=== PATIENT | male | born 1975 | race Caucasian/White ===

== ENCOUNTER 2017-01-20 14:00 | Emergency (ER) | payer MEDICARE, MEDICAID ==
[~2017-01-20] VITALS: Ht 180.3 cm; Wt 61.2 kg
[2017-01-20 14:31] VITALS: BP 156/82
[2017-01-20] MEDS ORDERED: HYDROmorphone HCL 2 MG/ML VL IM ONE (14:45)
[2017-01-20] MEDS ORDERED: ONDANSETRON HCL 4 MG/2 ML VIAL IM ONE (14:45)
== END 2017-01-20 15:11 | disposition home or self-care (01) ==
LOC: ER 14:00
DX: G89.29 Other chronic pain (principal); M54.5 Low back pain; J44.9 Chronic obstructive pulmonary disease, unspecified; F17.210 Nicotine dependence, cigarettes, uncomplicated; Z98.1 Arthrodesis status; Z88.0 Allergy status to penicillin; Z88.6 Allergy status to analgesic agent
CPT/HCPCS: 96372; 99284; J1170; J2405

== ENCOUNTER 2019-02-04 15:23 | Emergency (ER) | payer MEDICARE, MEDICAID ==
[~2019-02-04] VITALS: Ht 180.3 cm; Wt 56.7 kg
[2019-02-04 18:56] VITALS: BP 110/85
[2019-02-04] MEDS ORDERED: DexAMETHasone SOD PHOS 10MG/1ML VIAL INJ IM ONE (19:15)
[2019-02-04] MEDS ORDERED: MORPHINE SULFATE 10 MG/ML INJ 1ML SDV IM ONE (19:15)
== END 2019-02-04 19:41 | disposition home or self-care (01) ==
LOC: ER 15:23
DX: M54.16 Radiculopathy, lumbar region (principal); G89.29 Other chronic pain; J44.9 Chronic obstructive pulmonary disease, unspecified; F17.210 Nicotine dependence, cigarettes, uncomplicated; F12.10 Cannabis abuse, uncomplicated; Z88.0 Allergy status to penicillin
CPT/HCPCS: 96372; 99283; J1100; J2270

== ENCOUNTER 2019-04-11 12:42 | Emergency (ER) | payer MEDICARE, MEDICAID ==
[~2019-04-11] VITALS: Ht 180.3 cm; Wt 61.2 kg
[2019-04-11 16:50] VITALS: BP 122/74
== END 2019-04-11 16:52 | disposition home or self-care (01) ==
LOC: ER 12:42
DX: F31.9 Bipolar disorder, unspecified (principal); J44.9 Chronic obstructive pulmonary disease, unspecified; I10 Essential (primary) hypertension; Z90.89 Acquired absence of other organs
CPT/HCPCS: 70450

== ENCOUNTER 2020-09-01 16:31 | Emergency (ER) | payer MEDICARE, MEDICAID ==
[~2020-09-01] VITALS: Ht 180.3 cm; Wt 54.4 kg
[2020-09-01] MEDS ORDERED: MORPHINE SULFATE 10 MG/ML INJ 1ML SDV IM ONE ×2 (19:45→20:00)
[2020-09-01 19:58] VITALS: BP 128/95
[2020-09-01] MEDS ORDERED: HYDROmorphone HCL 2 MG/ML VL IM ONE ×2 (20:30→21:45)
[2020-09-01] MEDS ORDERED: ONDANSETRON ODT 4 MG TAB PO ONE (21:15)
== END 2020-09-01 22:58 | disposition home or self-care (01) ==
LOC: ER 16:31
DX: M54.5 Low back pain (principal); F11.10 Opioid abuse, uncomplicated; J44.9 Chronic obstructive pulmonary disease, unspecified; I10 Essential (primary) hypertension; F17.210 Nicotine dependence, cigarettes, uncomplicated; Z90.89 Acquired absence of other organs; Z88.0 Allergy status to penicillin; Z88.8 Allergy status to other drugs, medicaments and biological substances
CPT/HCPCS: 72100; 96372; 99284; J1170; Q0162

== ENCOUNTER 2020-09-03 09:03 | Emergency (ER) | payer MEDICARE, MEDICAID ==
[~2020-09-03] VITALS: Ht 180.3 cm; Wt 59.0 kg
[2020-09-03 09:03] VITALS: BP 163/98
[2020-09-03] MEDS ORDERED: MORPHINE SULF INJ 2 MG/ML SYRINGE 1ML IM ONE (10:15)
[2020-09-03] MEDS ORDERED: ONDANSETRON HCL 4 MG/2 ML VIAL IM ONE (10:15)
== END 2020-09-03 11:01 | disposition home or self-care (01) ==
LOC: ER 09:03
DX: G89.29 Other chronic pain (principal); M54.5 Low back pain
CPT/HCPCS: 96372; 99284; J2270; J2405

== ENCOUNTER 2020-11-25 10:35 | Emergency (ER) | payer MEDICARE, MEDICAID ==
[~2020-11-25] VITALS: Ht 180.3 cm; Wt 59.0 kg
[2020-11-25 11:09] VITALS: BP 129/95
[2020-11-25] MEDS ORDERED: HYDROmorphone HCL 2 MG/ML VL IM ONE (12:15)
[2020-11-25] MEDS ORDERED: PROMETHAZINE HCL 25 MG/ML 1ML IM ONE (12:15)
== END 2020-11-25 13:04 | disposition home or self-care (01) ==
LOC: ER 10:35
DX: G43.109 Migraine with aura, not intractable, without status migrainosus (principal); J44.9 Chronic obstructive pulmonary disease, unspecified; I10 Essential (primary) hypertension; F17.210 Nicotine dependence, cigarettes, uncomplicated; Z90.89 Acquired absence of other organs; Z88.8 Allergy status to other drugs, medicaments and biological substances; Z88.0 Allergy status to penicillin; Z88.6 Allergy status to analgesic agent
CPT/HCPCS: 96372; 99284; J1170; J2550

== ENCOUNTER 2020-12-22 09:27 | Emergency (ER) | payer MEDICARE, MEDICAID ==
[~2020-12-22] VITALS: Ht 180.3 cm; Wt 59.0 kg
[2020-12-22] MEDS ORDERED: PROMETHAZINE HCL 25 MG/ML 1ML IM ONE (10:00)
[2020-12-22] MEDS ORDERED: HYDROmorphone HCL 2 MG/ML VL IM ONE (10:00)
[2020-12-22 10:41] VITALS: BP 140/94
== END 2020-12-22 10:42 | disposition home or self-care (01) ==
LOC: ER 09:27
DX: G43.709 Chronic migraine without aura, not intractable, without status migrainosus (principal); G89.4 Chronic pain syndrome; J44.9 Chronic obstructive pulmonary disease, unspecified; I10 Essential (primary) hypertension; F17.210 Nicotine dependence, cigarettes, uncomplicated; Z90.49 Acquired absence of other specified parts of digestive tract; Z90.89 Acquired absence of other organs; Z88.0 Allergy status to penicillin; Z88.8 Allergy status to other drugs, medicaments and biological substances
CPT/HCPCS: 96372; 99284; J1170; J2550

== ENCOUNTER 2021-02-03 13:16 | Emergency (ER) | payer MEDICARE, MEDICAID ==
[~2021-02-03] VITALS: Ht 180.3 cm; Wt 61.2 kg
[2021-02-03 16:30] VITALS: BP 146/90
[2021-02-03] MEDS ORDERED: HYDROmorphone HCL 2 MG/ML VL IV ONE (16:30)
[2021-02-03] MEDS ORDERED: ONDANSETRON HCL 4 MG/2 ML VIAL IV ONE (16:30)
== END 2021-02-03 16:56 | disposition home or self-care (01) ==
LOC: ER 13:16
DX: M54.81 Occipital neuralgia (principal); G89.29 Other chronic pain; R51.9 Headache, unspecified; J44.9 Chronic obstructive pulmonary disease, unspecified; I10 Essential (primary) hypertension; E78.5 Hyperlipidemia, unspecified; F17.210 Nicotine dependence, cigarettes, uncomplicated; Z90.49 Acquired absence of other specified parts of digestive tract; Z90.89 Acquired absence of other organs
CPT/HCPCS: 96374; 96375; 99284; J1170; J2405

== ENCOUNTER 2021-03-22 10:38 | Emergency (ER) | payer MEDICARE, MEDICAID ==
[~2021-03-22] VITALS: Ht 180.3 cm; Wt 59.0 kg
[2021-03-22] MEDS ORDERED: PROMETHAZINE HCL 25 MG/ML 1ML IM ONE (11:45)
[2021-03-22] MEDS ORDERED: HYDROmorphone HCL 2 MG/ML VL IM ONE (11:45)
[2021-03-22 11:59] VITALS: BP 132/96
== END 2021-03-22 12:58 | disposition home or self-care (01) ==
LOC: ER 10:38
DX: G89.29 Other chronic pain (principal); M54.50 Low back pain, unspecified; J44.9 Chronic obstructive pulmonary disease, unspecified; I10 Essential (primary) hypertension; E78.5 Hyperlipidemia, unspecified; F17.210 Nicotine dependence, cigarettes, uncomplicated; Z90.49 Acquired absence of other specified parts of digestive tract; Z90.89 Acquired absence of other organs; Z88.0 Allergy status to penicillin; Z88.8 Allergy status to other drugs, medicaments and biological substances
CPT/HCPCS: 96372; 99284; J1170; J2550

== ENCOUNTER 2021-04-18 14:51 | Emergency (ER) | payer MEDICARE, MEDICAID ==
[~2021-04-18] VITALS: Ht 180.3 cm; Wt 62.6 kg
[2021-04-18] MEDS ORDERED: PROMETHAZINE HCL 25 MG/ML 1ML IM ONE (16:00)
[2021-04-18] MEDS ORDERED: HYDROmorphone HCL 2 MG/ML VL IM ONE (16:00)
[2021-04-18 16:21] VITALS: BP 153/87
== END 2021-04-18 17:07 | disposition home or self-care (01) ==
LOC: ER 14:51
DX: R51.9 Headache, unspecified (principal); G89.29 Other chronic pain; J44.9 Chronic obstructive pulmonary disease, unspecified; E78.5 Hyperlipidemia, unspecified; I10 Essential (primary) hypertension; F17.210 Nicotine dependence, cigarettes, uncomplicated
CPT/HCPCS: 96372; 99284; J1170; J2550

== ENCOUNTER 2021-04-20 09:17 | Emergency (ER) | payer MEDICARE, MEDICAID ==
[~2021-04-20] VITALS: Ht 180.3 cm; Wt 61.2 kg
[2021-04-20] MEDS ORDERED: HYDROmorphone HCL 2 MG/ML VL IM ONE (09:45)
[2021-04-20] MEDS ORDERED: PROMETHAZINE HCL 25 MG/ML 1ML IM ONE (09:45)
[2021-04-20 10:01] VITALS: BP 157/79
== END 2021-04-20 10:14 | disposition home or self-care (01) ==
LOC: ER 09:17
DX: G89.29 Other chronic pain (principal); G43.909 Migraine, unspecified, not intractable, without status migrainosus; J44.9 Chronic obstructive pulmonary disease, unspecified; E78.5 Hyperlipidemia, unspecified; I10 Essential (primary) hypertension; F17.210 Nicotine dependence, cigarettes, uncomplicated; Z90.49 Acquired absence of other specified parts of digestive tract; Z90.89 Acquired absence of other organs; Z88.0 Allergy status to penicillin; Z88.8 Allergy status to other drugs, medicaments and biological substances
CPT/HCPCS: 96372; 99284; J1170; J2550

== ENCOUNTER 2021-06-15 13:48 | Emergency (ER) | payer MEDICARE, MEDICAID ==
[~2021-06-15] VITALS: Ht 180.3 cm; Wt 61.2 kg
[2021-06-15] MEDS ORDERED: PROMETHAZINE HCL 25 MG/ML 1ML IM ONE (15:15)
[2021-06-15] MEDS ORDERED: HYDROmorphone HCL 2 MG/ML VL IM ONE (15:15)
[2021-06-15 15:21] VITALS: BP 134/64
== END 2021-06-15 15:45 | disposition home or self-care (01) ==
LOC: ER 13:48
DX: G89.29 Other chronic pain (principal); G43.909 Migraine, unspecified, not intractable, without status migrainosus; J44.9 Chronic obstructive pulmonary disease, unspecified; E78.5 Hyperlipidemia, unspecified; I10 Essential (primary) hypertension; F17.210 Nicotine dependence, cigarettes, uncomplicated; Z88.0 Allergy status to penicillin; Z88.8 Allergy status to other drugs, medicaments and biological substances
CPT/HCPCS: 96372; 99284; J1170; J2550

== ENCOUNTER 2021-07-24 16:15 | Emergency (ER) | payer MEDICARE, MEDICAID ==
[~2021-07-24] VITALS: Ht 180.3 cm; Wt 61.2 kg
[2021-07-24] MEDS ORDERED: HYDROmorphone HCL 2 MG/ML VL/or syr IM ONE (17:45)
[2021-07-24] MEDS ORDERED: ONDANSETRON ODT 4 MG TAB PO ONE (17:45)
[2021-07-24 17:51] VITALS: BP 118/85
== END 2021-07-24 17:59 | disposition home or self-care (01) ==
LOC: ER 16:15
DX: G89.29 Other chronic pain (principal); M54.50 Low back pain, unspecified; F17.210 Nicotine dependence, cigarettes, uncomplicated; J44.9 Chronic obstructive pulmonary disease, unspecified; E78.5 Hyperlipidemia, unspecified; I10 Essential (primary) hypertension; Z88.0 Allergy status to penicillin; Z88.8 Allergy status to other drugs, medicaments and biological substances
CPT/HCPCS: 96372; 99283; J1170; Q0162

== ENCOUNTER 2021-07-25 12:05 | Emergency (ER) | payer MEDICARE, MEDICAID ==
[~2021-07-25] VITALS: Ht 180.3 cm; Wt 61.2 kg
[2021-07-25 12:58] VITALS: BP 132/85
[2021-07-25] MEDS ORDERED: HYDROmorphone HCL 2 MG/ML VL/or syr IM ONE (13:00)
[2021-07-25] MEDS ORDERED: PROMETHAZINE HCL 25 MG/ML 1ML IM ONE (13:00)
== END 2021-07-25 13:08 | disposition home or self-care (01) ==
LOC: ER 12:05
DX: M54.50 Low back pain, unspecified (principal); G89.29 Other chronic pain; J44.9 Chronic obstructive pulmonary disease, unspecified; I10 Essential (primary) hypertension; E78.5 Hyperlipidemia, unspecified; F17.210 Nicotine dependence, cigarettes, uncomplicated; Z88.0 Allergy status to penicillin; Z88.8 Allergy status to other drugs, medicaments and biological substances
CPT/HCPCS: 96372; 99284; J1170; J2550

== ENCOUNTER 2021-08-17 12:19 | Emergency (ER) | payer MEDICARE, MEDICAID ==
[~2021-08-17] VITALS: Ht 180.3 cm; Wt 61.2 kg
[2021-08-17] MEDS ORDERED: HYDROmorphone HCL 2 MG/ML VL/or syr IM ONE (13:00)
[2021-08-17] MEDS ORDERED: PROMETHAZINE HCL 25 MG/ML 1ML IM ONE (13:00)
[2021-08-17 13:45] VITALS: BP 138/88
== END 2021-08-17 13:51 | disposition home or self-care (01) ==
LOC: ER 12:19
DX: G43.909 Migraine, unspecified, not intractable, without status migrainosus (principal); J44.9 Chronic obstructive pulmonary disease, unspecified; E78.5 Hyperlipidemia, unspecified; I10 Essential (primary) hypertension; F17.210 Nicotine dependence, cigarettes, uncomplicated
CPT/HCPCS: 96372; 99284; J1170; J2550

== ENCOUNTER 2021-08-21 11:40 | Emergency (ER) | payer MEDICARE, MEDICAID ==
[~2021-08-21] VITALS: Ht 180.3 cm; Wt 61.2 kg
[2021-08-21] MEDS ORDERED: HYDROmorphone HCL 2 MG/ML VL/or syr IM ONE (16:30)
[2021-08-21] MEDS ORDERED: PROMETHAZINE HCL 25 MG/ML 1ML IM ONE (16:30)
[2021-08-21 16:32] VITALS: BP 135/98
== END 2021-08-21 16:42 | disposition home or self-care (01) ==
LOC: ER 11:40
DX: M54.81 Occipital neuralgia (principal); J44.9 Chronic obstructive pulmonary disease, unspecified; E78.5 Hyperlipidemia, unspecified; I10 Essential (primary) hypertension; F17.210 Nicotine dependence, cigarettes, uncomplicated
CPT/HCPCS: 96372; 99284; J1170; J2550

== ENCOUNTER 2021-10-05 16:28 | Emergency (ER) | payer MEDICARE, MEDICAID ==
[~2021-10-05] VITALS: Ht 180.3 cm; Wt 61.3 kg
[2021-10-05] MEDS ORDERED: HYDROmorphone HCL 2 MG/ML VL/or syr IM ONE (17:30)
[2021-10-05] MEDS ORDERED: PROMETHAZINE HCL 25 MG/ML 1ML IM ONE (17:30)
[2021-10-05 17:57] VITALS: BP 148/89
== END 2021-10-05 17:57 | disposition home or self-care (01) ==
LOC: ER 16:28
DX: G89.29 Other chronic pain (principal); R51.9 Headache, unspecified; F11.20 Opioid dependence, uncomplicated; I10 Essential (primary) hypertension; J44.9 Chronic obstructive pulmonary disease, unspecified; E78.5 Hyperlipidemia, unspecified; F17.210 Nicotine dependence, cigarettes, uncomplicated; Z90.49 Acquired absence of other specified parts of digestive tract; Z90.89 Acquired absence of other organs; Z88.0 Allergy status to penicillin; Z88.8 Allergy status to other drugs, medicaments and biological substances
CPT/HCPCS: 96372; 99284; J1170; J2550

== ENCOUNTER 2021-10-10 14:41 | Emergency (ER) | payer MEDICARE, MEDICAID ==
[~2021-10-10] VITALS: Ht 180.3 cm; Wt 61.3 kg
[2021-10-10] MEDS ORDERED: PROMETHAZINE HCL 25 MG/ML 1ML IM ONE (15:30)
[2021-10-10] MEDS ORDERED: HYDROmorphone HCL 2 MG/ML VL/or syr IM ONE (15:30)
[2021-10-10 16:27] VITALS: BP 142/82
== END 2021-10-10 16:36 | disposition home or self-care (01) ==
LOC: ER 14:41
DX: G89.29 Other chronic pain (principal); M54.50 Low back pain, unspecified; M54.81 Occipital neuralgia; I10 Essential (primary) hypertension; J44.9 Chronic obstructive pulmonary disease, unspecified; E78.5 Hyperlipidemia, unspecified; F17.210 Nicotine dependence, cigarettes, uncomplicated; Z90.49 Acquired absence of other specified parts of digestive tract; Z90.89 Acquired absence of other organs; Z88.0 Allergy status to penicillin; Z88.8 Allergy status to other drugs, medicaments and biological substances
CPT/HCPCS: 96372; 99284; J1170; J2550

== ENCOUNTER 2021-11-07 14:39 | Emergency (ER) | payer MEDICARE, MEDICAID ==
[~2021-11-07] VITALS: Ht 180.3 cm; Wt 62.0 kg
[2021-11-07] MEDS ORDERED: PROMETHAZINE HCL 25 MG/ML 1ML IM ONE (15:15)
[2021-11-07] MEDS ORDERED: HYDROmorphone HCL 2 MG/ML VL/or syr IM ONE (15:15)
[2021-11-07 15:51] VITALS: BP 131/108
== END 2021-11-07 16:08 | disposition home or self-care (01) ==
LOC: ER 14:39
DX: G89.29 Other chronic pain (principal); M54.81 Occipital neuralgia; J44.9 Chronic obstructive pulmonary disease, unspecified; E78.5 Hyperlipidemia, unspecified; I10 Essential (primary) hypertension; F17.210 Nicotine dependence, cigarettes, uncomplicated; Z88.0 Allergy status to penicillin; Z88.8 Allergy status to other drugs, medicaments and biological substances
CPT/HCPCS: 96372; 99284; J1170; J2550

== ENCOUNTER 2021-11-08 12:12 | Emergency (ER) | payer MEDICARE, MEDICAID ==
[~2021-11-08] VITALS: Ht 180.3 cm; Wt 61.5 kg
[2021-11-08 12:28] VITALS: BP 163/88
[2021-11-08] MEDS ORDERED: HYDROcodone-ACET 10/325MG TAB PO ONE (13:45)
[2021-11-08] MEDS ORDERED: methylPREDNISolone SOD SUCC 125 MG/2 ML VL IM ONE (13:45)
== END 2021-11-08 14:10 | disposition home or self-care (01) ==
LOC: ER 12:12
DX: G89.29 Other chronic pain (principal); M54.50 Low back pain, unspecified; M62.830 Muscle spasm of back; J44.9 Chronic obstructive pulmonary disease, unspecified; E78.5 Hyperlipidemia, unspecified; I10 Essential (primary) hypertension; Z88.0 Allergy status to penicillin; Z88.8 Allergy status to other drugs, medicaments and biological substances; Z88.1 Allergy status to other antibiotic agents
CPT/HCPCS: 96372; 99283; J2930

== ENCOUNTER 2022-01-25 11:38 | Emergency (ER) | payer MEDICARE, MEDICAID ==
[~2022-01-25] VITALS: Ht 180.3 cm; Wt 55.0 kg
[2022-01-25] MEDS ORDERED: PROMETHAZINE HCL 25 MG/ML 1ML IM ONE (13:45)
[2022-01-25] MEDS ORDERED: HYDROmorphone HCL 2 MG/ML VL/or syr IM ONE (13:45)
[2022-01-25 14:45] VITALS: BP 125/98
== END 2022-01-25 15:09 | disposition home or self-care (01) ==
LOC: ER 11:41
DX: G43.709 Chronic migraine without aura, not intractable, without status migrainosus (principal); G89.29 Other chronic pain; M54.9 Dorsalgia, unspecified; I10 Essential (primary) hypertension; J44.9 Chronic obstructive pulmonary disease, unspecified; E78.5 Hyperlipidemia, unspecified; F17.210 Nicotine dependence, cigarettes, uncomplicated; Z88.0 Allergy status to penicillin; Z88.8 Allergy status to other drugs, medicaments and biological substances
CPT/HCPCS: 96372; 99284; J1170; J2550

== ENCOUNTER 2022-03-21 16:17 | Emergency (ER) | payer MEDICARE, MEDICAID ==
[~2022-03-21] VITALS: Ht 180.3 cm; Wt 61.3 kg
[2022-03-21 16:50] VITALS: BP 109/82
== END 2022-03-21 22:47 | disposition left against medical advice (07) ==
LOC: ER 16:20
DX: R51.9 Headache, unspecified (principal); G89.29 Other chronic pain; M79.10 Myalgia, unspecified site; Z53.21 Procedure and treatment not carried out due to patient leaving prior to being seen by health care provider

== ENCOUNTER 2022-03-22 13:40 | Emergency (ER) | payer MEDICARE, MEDICAID ==
[~2022-03-22] VITALS: Ht 180.3 cm; Wt 56.2 kg
[2022-03-22] MEDS ORDERED: HYDROmorphone HCL 2 MG/ML VL/or syr IM ONE (15:30)
[2022-03-22] MEDS ORDERED: PROMETHAZINE HCL 25 MG/ML 1ML IM ONE (15:30)
[2022-03-22 16:15] VITALS: BP 142/100
== END 2022-03-22 16:17 | disposition home or self-care (01) ==
LOC: ER 13:40
DX: G43.909 Migraine, unspecified, not intractable, without status migrainosus (principal); F17.210 Nicotine dependence, cigarettes, uncomplicated; J44.9 Chronic obstructive pulmonary disease, unspecified; E78.5 Hyperlipidemia, unspecified; I10 Essential (primary) hypertension; Z88.0 Allergy status to penicillin; Z88.8 Allergy status to other drugs, medicaments and biological substances
CPT/HCPCS: 96372; 99284; J1170; J2550

== ENCOUNTER 2022-05-17 16:03 | Emergency (ER) | payer MEDICARE, MEDICAID ==
[~2022-05-17] VITALS: Ht 180.3 cm; Wt 60.0 kg
[2022-05-17] MEDS ORDERED: PROMETHAZINE HCL 25 MG/ML 1ML IM ONE (17:15)
[2022-05-17] MEDS ORDERED: HYDROmorphone HCL 2 MG/ML VL/or syr IM ONE (17:15)
[2022-05-17 18:18] VITALS: BP 120/80
== END 2022-05-17 18:20 | disposition home or self-care (01) ==
LOC: ER 16:03
DX: G43.709 Chronic migraine without aura, not intractable, without status migrainosus (principal); F41.9 Anxiety disorder, unspecified; J44.9 Chronic obstructive pulmonary disease, unspecified; E78.5 Hyperlipidemia, unspecified; I10 Essential (primary) hypertension; F17.210 Nicotine dependence, cigarettes, uncomplicated; Z87.11 Personal history of peptic ulcer disease
CPT/HCPCS: 96372; 99284; J1170; J2550

== ENCOUNTER 2022-05-22 10:11 | Emergency (ER) | payer MEDICARE, MEDICAID ==
[~2022-05-22] VITALS: Ht 180.3 cm; Wt 58.3 kg
[2022-05-22] MEDS ORDERED: PROMETHAZINE HCL 25 MG/ML 1ML IM ONE (11:30)
[2022-05-22] MEDS ORDERED: HYDROmorphone HCL 2 MG/ML VL/or syr IM ONE (11:30)
[2022-05-22 12:04] VITALS: BP 156/118
== END 2022-05-22 12:45 | disposition home or self-care (01) ==
LOC: ER 10:11
DX: G43.009 Migraine without aura, not intractable, without status migrainosus (principal)
CPT/HCPCS: 96372; 99284; J1170; J2550

== ENCOUNTER 2022-07-16 12:22 | Emergency (ER) | payer MEDICARE, MEDICAID ==
[~2022-07-16] VITALS: Ht 180.3 cm; Wt 57.0 kg
[2022-07-16] MEDS ORDERED: HYDROmorphone HCL 2 MG/ML VL/or syr IM ONE (14:30)
[2022-07-16 14:43] VITALS: BP 128/102
== END 2022-07-16 14:49 | disposition home or self-care (01) ==
LOC: ER 12:22
DX: G89.29 Other chronic pain (principal); R51.9 Headache, unspecified; M54.59 Other low back pain; F41.9 Anxiety disorder, unspecified; J44.9 Chronic obstructive pulmonary disease, unspecified; E78.5 Hyperlipidemia, unspecified; I10 Essential (primary) hypertension; F17.210 Nicotine dependence, cigarettes, uncomplicated; Z87.11 Personal history of peptic ulcer disease; Z90.89 Acquired absence of other organs
CPT/HCPCS: 96372; 99283; J1170

== ENCOUNTER 2022-07-17 16:23 | Emergency (ER) | payer MEDICARE, MEDICAID ==
[~2022-07-17] VITALS: Ht 180.3 cm; Wt 65.0 kg
[2022-07-17] MEDS ORDERED: PROMETHAZINE HCL 25 MG/ML 1ML IM ONE (17:30)
[2022-07-17] MEDS ORDERED: HYDROmorphone HCL 2 MG/ML VL/or syr IM ONE (17:30)
[2022-07-17 19:40] VITALS: BP 127/96
== END 2022-07-17 19:41 | disposition home or self-care (01) ==
LOC: ER 16:23
DX: G89.29 Other chronic pain (principal); M54.50 Low back pain, unspecified
CPT/HCPCS: 96372; 99284; J1170; J2550

== ENCOUNTER 2022-07-18 15:16 | Emergency (ER) | payer MEDICARE, MEDICAID ==
[~2022-07-18] VITALS: Ht 180.3 cm; Wt 56.3 kg
[2022-07-18 15:25] VITALS: BP 177/108
[2022-07-18] MEDS ORDERED: ACETAMINOPHEN 650 mg PER 20.3 mL UD PO ONE (15:45)
[2022-07-18] MEDS ORDERED: ONDANSETRON ODT 4 MG TAB PO ONE (15:45)
== END 2022-07-19 06:30 | disposition left against medical advice (07) ==
LOC: ER 15:16
DX: M54.50 Low back pain, unspecified (principal); Z53.21 Procedure and treatment not carried out due to patient leaving prior to being seen by health care provider
CPT/HCPCS: 74018

== ENCOUNTER 2022-08-16 11:15 | Emergency (ER) | payer MEDICARE, MEDICAID ==
[~2022-08-16] VITALS: Ht 180.3 cm; Wt 56.0 kg
[2022-08-16] MEDS ORDERED: PROMETHAZINE HCL 25 MG/ML 1ML IM ONE (13:00)
[2022-08-16] MEDS ORDERED: HYDROmorphone HCL 2 MG/ML VL/or syr IM ONE (13:00)
[2022-08-16 13:43] VITALS: BP 126/74
== END 2022-08-16 13:59 | disposition home or self-care (01) ==
LOC: ER 11:15
DX: G89.29 Other chronic pain (principal); M54.50 Low back pain, unspecified; J44.9 Chronic obstructive pulmonary disease, unspecified; E78.5 Hyperlipidemia, unspecified; I10 Essential (primary) hypertension; F17.210 Nicotine dependence, cigarettes, uncomplicated; Z88.0 Allergy status to penicillin; Z88.6 Allergy status to analgesic agent
CPT/HCPCS: 96372; 99284; J1170; J2550

== ENCOUNTER 2022-09-16 15:33 | Emergency (ER) | payer MEDICARE, MEDICAID ==
[~2022-09-16] VITALS: Ht 180.3 cm; Wt 56.9 kg
[2022-09-16] MEDS ORDERED: HYDROmorphone HCL 2 MG TAB PO ONE (17:00)
[2022-09-16 17:15] VITALS: PULSE 83; RESP 16; O2SAT 98
[2022-09-16 17:55] VITALS: BP 155/90; PULSE 69; RESP 15; TEMP 98.3; O2SAT 99
== END 2022-09-16 17:57 | disposition home or self-care (01) ==
LOC: ER 15:33
DX: G89.29 Other chronic pain (principal); M54.50 Low back pain, unspecified; F41.9 Anxiety disorder, unspecified; J44.9 Chronic obstructive pulmonary disease, unspecified; E78.5 Hyperlipidemia, unspecified; I10 Essential (primary) hypertension; F17.210 Nicotine dependence, cigarettes, uncomplicated; Z76.0 Encounter for issue of repeat prescription; Z90.49 Acquired absence of other specified parts of digestive tract; Z88.0 Allergy status to penicillin; Z88.8 Allergy status to other drugs, medicaments and biological substances; Z88.6 Allergy status to analgesic agent

== ENCOUNTER 2022-10-10 12:38 | Emergency (ER) | payer MEDICARE, MEDICAID ==
[~2022-10-10] VITALS: Ht 180.3 cm; Wt 62.2 kg
[2022-10-10] MEDS ORDERED: PROMETHAZINE HCL 25 MG/ML 1ML IM ONE (15:00)
[2022-10-10] MEDS ORDERED: HYDROmorphone HCL 2 MG/ML VL/or syr IM ONE (15:00)
[2022-10-10 15:54] VITALS: BP 172/86; PULSE 18; RESP 18; TEMP 98.6; O2SAT 96
== END 2022-10-10 16:01 | disposition home or self-care (01) ==
LOC: ER 12:38
DX: M54.50 Low back pain, unspecified (principal); G89.29 Other chronic pain; F17.210 Nicotine dependence, cigarettes, uncomplicated; J44.9 Chronic obstructive pulmonary disease, unspecified; E78.5 Hyperlipidemia, unspecified; I10 Essential (primary) hypertension; Z88.0 Allergy status to penicillin; Z88.6 Allergy status to analgesic agent; Z88.8 Allergy status to other drugs, medicaments and biological substances
CPT/HCPCS: 96372; 99284; J1170; J2550

== ENCOUNTER 2022-10-13 14:28 | Emergency (ER) | payer MEDICARE, MEDICAID ==
[~2022-10-13] VITALS: Ht 180.3 cm; Wt 55.5 kg
[2022-10-13 17:57] VITALS: BP 123/96; PULSE 112; RESP 18; TEMP 97.2; O2SAT 98
[2022-10-13] MEDS ORDERED: HYDROmorphone HCL 2 MG TAB PO ONE (19:00)
== END 2022-10-13 20:15 | disposition home or self-care (01) ==
LOC: ER 14:28
DX: G89.29 Other chronic pain (principal); M54.59 Other low back pain; F41.9 Anxiety disorder, unspecified; J45.909 Unspecified asthma, uncomplicated; E78.5 Hyperlipidemia, unspecified; I10 Essential (primary) hypertension; F17.210 Nicotine dependence, cigarettes, uncomplicated; Z90.49 Acquired absence of other specified parts of digestive tract; Z90.89 Acquired absence of other organs; Z88.0 Allergy status to penicillin; Z88.8 Allergy status to other drugs, medicaments and biological substances

== ENCOUNTER 2022-11-11 02:34 | Emergency (ER) | payer MEDICARE, MEDICAID ==
[~2022-11-11] VITALS: Ht 180.3 cm; Wt 135.0 kg
[2022-11-11] MEDS ORDERED: HYDROmorphone HCL 2 MG TAB PO ONE (04:45)
[2022-11-11 05:00] VITALS: BP 124/100; PULSE 89; RESP 18; TEMP 98.2; O2SAT 99
== END 2022-11-11 05:05 | disposition home or self-care (01) ==
LOC: ER 02:34
DX: G89.29 Other chronic pain (principal); M54.50 Low back pain, unspecified; F17.210 Nicotine dependence, cigarettes, uncomplicated; J44.9 Chronic obstructive pulmonary disease, unspecified; E78.5 Hyperlipidemia, unspecified; I10 Essential (primary) hypertension; Z88.0 Allergy status to penicillin; Z88.6 Allergy status to analgesic agent; Z88.8 Allergy status to other drugs, medicaments and biological substances

== ENCOUNTER 2022-11-13 00:29 | Emergency (ER) | payer MEDICARE, MEDICAID ==
[~2022-11-13] VITALS: Ht 180.3 cm; Wt 56.7 kg
[2022-11-13] MEDS ORDERED: HYDROmorphone HCL 2 MG TAB PO ONE (03:15)
[2022-11-13 03:28] VITALS: BP 143/99; PULSE 81; RESP 18; TEMP 98.2; O2SAT 98
== END 2022-11-13 03:17 | disposition home or self-care (01) ==
LOC: ER 00:32
DX: M54.50 Low back pain, unspecified (principal); G89.29 Other chronic pain; J44.9 Chronic obstructive pulmonary disease, unspecified; E78.5 Hyperlipidemia, unspecified; I10 Essential (primary) hypertension; F17.210 Nicotine dependence, cigarettes, uncomplicated; Z88.0 Allergy status to penicillin; Z88.6 Allergy status to analgesic agent

== ENCOUNTER 2022-11-14 09:33 | Emergency (ER) | payer MEDICARE, MEDICAID ==
[~2022-11-14] VITALS: Ht 180.3 cm; Wt 53.7 kg
[2022-11-14 10:00] VITALS: TEMP 96; O2SAT 98
[2022-11-14] MEDS ORDERED: PROMETHAZINE HCL 25 MG/ML 1ML IM ONE (11:45)
[2022-11-14] MEDS ORDERED: HYDROmorphone HCL 2 MG/ML VL/or syr IM ONE (11:45)
[2022-11-14 12:20] VITALS: BP 120/64; PULSE 76; RESP 18
== END 2022-11-14 12:23 | disposition home or self-care (01) ==
LOC: ER 09:33
DX: G89.29 Other chronic pain (principal); M54.50 Low back pain, unspecified; J44.9 Chronic obstructive pulmonary disease, unspecified; E78.5 Hyperlipidemia, unspecified; I10 Essential (primary) hypertension; F17.210 Nicotine dependence, cigarettes, uncomplicated; Z88.0 Allergy status to penicillin; Z88.6 Allergy status to analgesic agent; Z88.8 Allergy status to other drugs, medicaments and biological substances
CPT/HCPCS: 96372; 99284; J1170; J2550

== ENCOUNTER 2022-11-15 00:05 | Emergency (ER) | payer MEDICARE, MEDICAID ==
[~2022-11-15] VITALS: Ht 180.3 cm; Wt 57.0 kg
[2022-11-15] MEDS ORDERED: HYDROmorphone HCL 2 MG TAB PO ONE (04:30)
[2022-11-15 05:03] VITALS: BP 127/87; PULSE 88; RESP 17; TEMP 97.6; O2SAT 96
== END 2022-11-15 05:05 | disposition home or self-care (01) ==
LOC: ER 00:05
DX: G89.29 Other chronic pain (principal); M54.59 Other low back pain; F41.9 Anxiety disorder, unspecified; J45.909 Unspecified asthma, uncomplicated; J44.9 Chronic obstructive pulmonary disease, unspecified; E78.5 Hyperlipidemia, unspecified; I10 Essential (primary) hypertension; F17.210 Nicotine dependence, cigarettes, uncomplicated; Z88.0 Allergy status to penicillin; Z88.8 Allergy status to other drugs, medicaments and biological substances

== ENCOUNTER 2022-12-10 18:47 | Emergency (ER) | payer MEDICARE, MEDICAID ==
[~2022-12-10] VITALS: Ht 180.3 cm; Wt 59.1 kg
[2022-12-10 20:10] VITALS: O2SAT 98
[2022-12-10] MEDS ORDERED: ONDANSETRON ODT 4 MG TAB PO ONE (23:00)
[2022-12-10] MEDS ORDERED: MORPHINE SULFATE 4 MG/ML SYR/VIAL IM ONE (23:00)
[2022-12-10 23:23] VITALS: BP 139/96; PULSE 108; RESP 18
== END 2022-12-10 23:30 | disposition home or self-care (01) ==
LOC: ER 18:47
DX: G89.4 Chronic pain syndrome (principal); M54.9 Dorsalgia, unspecified; I10 Essential (primary) hypertension; J44.9 Chronic obstructive pulmonary disease, unspecified; E78.5 Hyperlipidemia, unspecified; F17.210 Nicotine dependence, cigarettes, uncomplicated; Z88.0 Allergy status to penicillin; Z88.8 Allergy status to other drugs, medicaments and biological substances
CPT/HCPCS: 96372; 99283; J2270; Q0162

== ENCOUNTER 2022-12-12 18:27 | Emergency (ER) | payer MEDICARE, MEDICAID ==
[~2022-12-12] VITALS: Ht 180.3 cm; Wt 62.0 kg
[2022-12-12 21:28] VITALS: BP 150/105; PULSE 92; RESP 18; TEMP 97.7; O2SAT 99
[2022-12-12] MEDS ORDERED: HYDROcodone-ACET 10/325MG TAB PO ONE (21:30)
== END 2022-12-12 21:40 | disposition home or self-care (01) ==
LOC: ER 18:27
DX: G89.29 Other chronic pain (principal); M54.59 Other low back pain; F41.9 Anxiety disorder, unspecified; J45.909 Unspecified asthma, uncomplicated; J44.9 Chronic obstructive pulmonary disease, unspecified; E78.5 Hyperlipidemia, unspecified; I10 Essential (primary) hypertension; F17.210 Nicotine dependence, cigarettes, uncomplicated; Z98.890 Other specified postprocedural states; Z88.0 Allergy status to penicillin; Z88.8 Allergy status to other drugs, medicaments and biological substances
CPT/HCPCS: 99281; J7030

== ENCOUNTER 2023-01-10 20:35 | Emergency (ER) | payer MEDICARE, MEDICAID ==
[~2023-01-10] VITALS: Ht 180.3 cm; Wt 61.4 kg
[2023-01-10 22:44] VITALS: TEMP 97.2; O2SAT 98
[2023-01-10] MEDS ORDERED: MORPHINE SULFATE INJ 2 MG/ml SYRG IM ONE (22:45)
[2023-01-10 23:16] VITALS: BP 140/78; PULSE 89; RESP 18
== END 2023-01-10 23:18 | disposition home or self-care (01) ==
LOC: ER 20:35
DX: G89.29 Other chronic pain (principal); M54.50 Low back pain, unspecified; J44.9 Chronic obstructive pulmonary disease, unspecified; E78.5 Hyperlipidemia, unspecified; I10 Essential (primary) hypertension; F17.210 Nicotine dependence, cigarettes, uncomplicated; Z87.39 Personal history of other diseases of the musculoskeletal system and connective tissue; Z88.0 Allergy status to penicillin; Z88.8 Allergy status to other drugs, medicaments and biological substances
CPT/HCPCS: 96372; 99283; J2270

== ENCOUNTER 2023-01-12 14:59 | Emergency (ER) | payer MEDICARE, MEDICAID ==
[~2023-01-12] VITALS: Ht 180.3 cm; Wt 62.0 kg
[2023-01-12 15:19] VITALS: BP 108/68; PULSE 109; RESP 16; O2SAT 98
== END 2023-01-12 18:27 | disposition left against medical advice (07) ==
LOC: ER 14:59
DX: M54.59 Other low back pain (principal); Z53.21 Procedure and treatment not carried out due to patient leaving prior to being seen by health care provider

== ENCOUNTER 2023-02-05 10:32 | Emergency (ER) | payer MEDICARE, MEDICAID ==
[~2023-02-05] VITALS: Ht 180.3 cm; Wt 55.7 kg
[2023-02-05 12:26] VITALS: BP 120/86; PULSE 98; RESP 14; TEMP 97.6; O2SAT 97
[2023-02-05] MEDS ORDERED: HYDROmorphone HCL 2 MG TAB PO ONE (13:30)
== END 2023-02-05 14:31 | disposition home or self-care (01) ==
LOC: ER 10:32
DX: G89.29 Other chronic pain (principal); M54.50 Low back pain, unspecified; I10 Essential (primary) hypertension; J44.9 Chronic obstructive pulmonary disease, unspecified; E78.5 Hyperlipidemia, unspecified; G43.909 Migraine, unspecified, not intractable, without status migrainosus; F17.210 Nicotine dependence, cigarettes, uncomplicated; Z88.0 Allergy status to penicillin; Z88.8 Allergy status to other drugs, medicaments and biological substances

== ENCOUNTER 2023-02-08 13:18 | Emergency (ER) | payer MEDICARE, MEDICAID ==
[~2023-02-08] VITALS: Ht 180.3 cm; Wt 57.2 kg
[2023-02-08] MEDS ORDERED: HYDROmorphone HCL 2 MG TAB PO ONE (15:30)
[2023-02-08 16:25] VITALS: BP 125/89; PULSE 95; RESP 16; TEMP 98.6; O2SAT 96
== END 2023-02-08 16:20 | disposition home or self-care (01) ==
LOC: ER 13:18
DX: G89.29 Other chronic pain (principal); M54.50 Low back pain, unspecified; I10 Essential (primary) hypertension; J44.9 Chronic obstructive pulmonary disease, unspecified; E78.5 Hyperlipidemia, unspecified; F17.210 Nicotine dependence, cigarettes, uncomplicated; Z88.0 Allergy status to penicillin; Z88.8 Allergy status to other drugs, medicaments and biological substances

== ENCOUNTER 2023-06-28 12:06 | Emergency (ER) | payer MEDICARE, MEDICAID ==
[~2023-06-28] VITALS: Ht 180.3 cm; Wt 63.0 kg
[2023-06-28 13:07] VITALS: BP 125/76; PULSE 109; RESP 18; TEMP 97.5; O2SAT 96
== END 2023-06-28 14:44 | disposition home or self-care (01) ==
LOC: ER 12:06
DX: M54.50 Low back pain, unspecified (principal); J44.9 Chronic obstructive pulmonary disease, unspecified; E78.5 Hyperlipidemia, unspecified; I10 Essential (primary) hypertension; F17.210 Nicotine dependence, cigarettes, uncomplicated; Z76.0 Encounter for issue of repeat prescription; Z88.0 Allergy status to penicillin; Z88.6 Allergy status to analgesic agent

== ENCOUNTER 2023-12-17 13:48 | Emergency (ER) | payer MEDICARE, MEDICAID ==
[~2023-12-17] VITALS: Ht 180.3 cm; Wt 56.0 kg
[2023-12-17 14:26] VITALS: TEMP 97.2; O2SAT 95
[2023-12-17] MEDS: HYDROmorphone HCL 2 MG/ML VL/or syr IM ONE (14:50)
[2023-12-17] MEDS: ONDANSETRON ODT 4 MG TAB PO ONE (14:50)
[2023-12-17 15:28] VITALS: BP 108/75; PULSE 87; RESP 17
== END 2023-12-17 15:35 | disposition home or self-care (01) ==
LOC: ER 13:51
DX: G89.29 Other chronic pain (principal); M54.50 Low back pain, unspecified; I10 Essential (primary) hypertension; E78.5 Hyperlipidemia, unspecified; J44.9 Chronic obstructive pulmonary disease, unspecified; F41.9 Anxiety disorder, unspecified; F17.210 Nicotine dependence, cigarettes, uncomplicated; Z88.0 Allergy status to penicillin; Z88.8 Allergy status to other drugs, medicaments and biological substances
CPT/HCPCS: 96372; 99283; J1171; Q0162

== ENCOUNTER 2024-01-14 11:53 | Emergency (ER) | payer MEDICARE, MEDICAID ==
[~2024-01-14] VITALS: Ht 180.3 cm; Wt 57.7 kg
[2024-01-14 12:48] VITALS: TEMP 97.7
[2024-01-14] MEDS ORDERED: HYDROMORPHONE HCL 1 MG/ML INJ IM ONE (13:00)
[2024-01-14] MEDS: ONDANSETRON ODT 4 MG TAB PO ONE (13:00)
--- NOTE | 2024-01-14 13:05 | ED.PDOC ---
History of Present Illness HPI Comments A 49 YEAR OLD MALE PRESENTS TO THE ED WITH COMPLAINT OF CHRONIC BACK PAIN. PATIENT REPORTS THAT HE HAD RAN OUT OF DILAUDID FOR HIS PAIN MANAGEMENT OF CHRONIC BACK PAIN, REQUESTING A DOSE NOW TILL HE IS ABLE TO FILL HIS PRESCRIPTION THE PHARMACY DOES NOT HAVE IT IN STOCK AT THIS TIME. PATIENT DENIES FEVER, CHILLS, SHORTNESS OF BREATH, CHEST PAIN, ABDOMINAL PAIN, NAUSEA, VOMITING, HEADACHE, OR OTHER COMPLAINTS. NO OTHER SYMPTOMS OR MODIFYING FACTORS AT THIS TIME. Chief Complaint: Back Pain Time Seen by MD: 13:00 Primary Care Provider: UNKNOWN Reviewed Notes: Nurses Notes, Medications, Allergies Allergies: Coded Allergies: Droperidol (Verified Allergy, Unknown, 04/20/21) Ketorolac Tromethamine (Verified Allergy, Unknown, 04/20/21) Penicillins (Unverified Allergy, Unknown, 04/11/19) Prochlorperazine (Unverified Allergy, Unknown, 04/11/19) Propranolol (Verified Allergy, Unknown, 11/25/20) Information Source: Patient Mode of Arrival: Ambulatory Severity: Moderate Timing: Days Duration: Since onset Prehospital treatment: None Medication Refill: Ran out of Medication, For: Pain, For: Other (CHRONIC LOW BACK PAIN ) Past Medical History PAST MEDICAL HISTORY: Anxiety, Asthma, COPD, High Lipids, HTN Past Medical History (Other): CHRONIC LOW BACK PAIN Surgical History: Denies all surgeries Family History Family History: Reviewed,noncontributory to illness Social History Smoker: Cigarettes, Less Than 1 Pack/Day Alcohol: Denies ETOH Use Drugs: Denies Drug Use Lives In: Home Constitutional: denies: chills, diaphoresis, fatigue, fever, malaise, sweats, weakness, others EENTM: denies: blurred vision, double vision, ear bleeding, ear discharge, ear drainage, ear pain, ear ringing, eye pain, eye redness, hearing loss, mouth pain, mouth swelling, nasal discharge, nose bleeding, nose congestion, nose pain, photophobia, tearing, throat pain, throat swelling, voice changes, others Respiratory: denies: cough, hemoptysis, orthopnea, SOB at rest, shortness of breath, SOB with excertion, stridor, wheezing, others Cardiovascular: denies: chest pain, dizzy spells, diaphoresis, Dyspnea on exertion, edema, irregular heart beat, left arm pain, lightheadedness, palpitations, PND, syncope, others Gastrointestinal: denies: abdomen distended, abdominal pain, blood streaked bowels, constipated, diarrhea, dysphagia, difficulty swallowing, hematemesis, melena, nausea, poor appetite, poor fluid intake, rectal bleeding, rectal pain, vomiting, others Genitourinary: denies: burning, dysuria, flank pain, frequency, hematuria, incontinence, penile discharge, penile sore, pain, testicle pain, testicle swelling, urgency, others Neurological: denies: dizziness, fainting, headache, left sided numbness, left sided weakness, numbness, paresthesia, pre-existing deficit, right sided numbness, right sided weakness, seizure, speech problems, tingling, tremors, weakness, others Musculoskeletal: reports: back pain (CHRONIC BACK PAIN), muscle pain; denies: gout, joint pain, joint swelling, muscle stiffness, neck pain, others Integumetry: denies: bruises, change in color, change in hair/nails, dryness, laceration, lesions, lumps, rash, wounds, others Allergic/Immunocompromised: denies: Difficulty Healing, Frequent Infections, Hives, Itching, others Hematologic/Lymphatic: denies: anemia, blood clots, easy bleeding, easy bruising, swollen glands, others Endocrine: denies: excessive hunger, excessive sweating, excessive thirst, excessive urination, flushing, intolerance to cold, intolerance to heat, unexplained weight gain, unexplained weight loss, others Psychiatric: denies: anxiety, bipolar disorder, depression, hopeless, panic disorder, schizophrenia, sleepless, suicidal, others All Other Systems: Reviewed and Negative Physical Exam General Appearance: No Apparent Distress, Normal HEENT: Normal ENT Inspection, PERRL/EOMI Neck: Full Range of Motion, Non-Tender, Normal, Normal Inspection Respiratory: Chest Non-Tender, Lungs Clear, No Accessory Muscle Use, No Respiratory Distress, Normal Breath Sounds Cardiovascular: No Edema, No JVD, No Murmur, No Gallop, Normal Peripheral Pulses, Regular Rate/Rhythm Breast Exam: Deferred Gastrointestinal: No Organomegaly, Non Tender, No Pulsatile Mass, Normal Bowel Sounds, Soft Genitalia: Deferred Pelvic: Deferred Rectal: Deferred Extremities: No calf tenderness, Normal capillary refill, Normal inspection, Normal range of motion, Non-tender, No pedal edema Musculoskeletal : Location: Bilateral Extremity Location: Back Apperance: Tenderness: Moderate (TENDERNESS AND MUSCLE SPASM ON LOWER BACK, NO BONY TENDERNESS, SWELLING AND DEFORMITY. ) Neurologic: Alert, stone polisher machine II-XII nml as Tested, No Motor Deficits, Normal Affect, Normal Mood, No Sensory Deficits Cerebellar Function: Normal Reflexes: Normal Skin: Dry, Normal Color, Warm Peripheral Pulses: 2+ carotid (R), 2+ carotid (L) Lymphatic: No Adenopathy Was a procedure done? Was a procedure done?: No Differential Dx Considerations may include: CHRONIC LOWER BACK PAIN EXACERBATION, PAIN MANAGEMENT X-Ray, Labs, Meds, VS Vital Signs Date Time Temp Pulse Resp B/P (MAP) Pulse Ox O2 Delivery O2 Flow Rate FiO2 01/14/24 12:48 97.7 100 14 125/97 (106) 98 97.7 01/14/24 12:48 100 14 98 Room Air 01/14/24 12:23 97.7 100 14 125/97 (106) 98 Current Medications Medications (Trade) Dose Ordered Sig/Olga Route Start Time Stop Time Status Last Admin Ondansetron HCl (Zofran Po) 4 mg ONCE ONCE PO 01/14/24 13:00 01/14/24 13:02 DC 01/14/24 13:00 X-Ray, Labs, Meds, VS Comment BASED ON THE PATIENT'S PERSISTENCE OF SYMPTOMS, THE PATIENT SOUGHT OUT ED CONSULT. BASED ON MY PHYSICAL EXAMINATION AND PATIENT'S HISTORY OF CHRONIC BACK PAIN, THERE IS NO NEW INJURY TO THE PATIENT'S BACK. THE PATIENT DENIES ANY NUMBNESS, WEAKNESS, TINGLING SENSATION, URINARY/BOWEL INCONTINENCE. THERE ARE NO SIGNS AND SYMPTOMS OF CAUDA EQUINA. THE PATIENT STATES THAT THE PAIN IS THE SAME WHEN THEY HAVE BACK PAIN FLARE-UP AND THAT THEY ONLY NEED PAIN MEDICATION IN THE ER. AT THIS POINT, THERE IS NO INDICATION FOR ANY IMAGING. THE PATIENT WAS ADVISED TO FOLLOW UP WITH ORTHO SPECIALIST FOR THEIR CHRONIC LOWER BACK PAIN AND PAIN MANAGEMENT DOCTOR FOR PAIN CONTROL. PATIENT WAS GIVEN DILAUDID 2MG AND ZOFRAN 4MG FOR PAIN MEDICATION. OVERALL PATIENT'S VITAL SIGNS ARE STABLE AND THE PATIENT WILL BE DISCHARGED HOME. Time of 1ST Reevaluation: 14:00 Reevaluation 1ST: Improved Patient Education/Counseling: Diagnosis, Treatment, Need For Follow Up Family Education/Counseling: Diagnosis, Treatment, Need For Follow Up Medical Screening: No EMC Exist At This Time Departure 1 Departure Time of Disposition: 14:00 Impression: Primary Impression: Pain management Additional Impression: Acute exacerbation of chronic low back pain Disposition: HOME / SELF CARE / HOMELESS Condition: Stable Additional Instructions: FOLLOW-UP WITH PCP IN 1 TO 2 DAYS. TAKE MEDICATIONS PRESCRIBED. RETURN TO ED FOR ANY NEW OR WORSENING SYMPTOMS. Discharged With: Self, Spouse Critical Care Note Critical Care Time?: No Stability Stability form required: No Heart Score Heart Score: Heart Score Response (Comments) Value History N/A 0 EKG N/A 0 Age N/A 0 Risk Factors N/A 0 Troponin N/A 0 Total 0 I personally scribed for JOCELINE HERNÁNDEZ ([email or web address]) on 01/14/24 at 13:05. Electronically submitted by Mao Chu ([email or web address]). I personally scribed for JOCELINE HERNÁNDEZ ([email or web address]) on 01/14/24 at 13:10. Electronically submitted by Mao Chu ([email or web address]). JOCELINE HERNÁNDEZ Jan 14, 2024 13:05
[2024-01-14] MEDS: HYDROMORPHONE HCL 1 MG/ML INJ IM ONE (13:39)
[2024-01-14] MEDS: HYDROmorphone HCL 2 MG/ML VL/or syr ONE (13:39)
[2024-01-14 14:14] VITALS: BP 136/85; PULSE 73; RESP 16; O2SAT 97
== END 2024-01-14 14:14 | disposition home or self-care (01) ==
LOC: ER 11:53
DX: M54.50 Low back pain, unspecified (principal); G89.29 Other chronic pain; I10 Essential (primary) hypertension; F17.210 Nicotine dependence, cigarettes, uncomplicated; J44.89 Other specified chronic obstructive pulmonary disease; Z88.0 Allergy status to penicillin
CPT/HCPCS: 99283; J1171; Q0162

== ENCOUNTER 2024-01-16 15:13 | Emergency (ER) | payer MEDICARE, MEDICAID ==
[~2024-01-16] VITALS: Ht 180.3 cm; Wt 57.6 kg
--- NOTE | 2024-01-16 15:55 | ED.PDOC ---
History of Present Illness HPI Comments A 49 YEAR OLD MALE PRESENTS TO THE ED WITH COMPLAINT OF CHRONIC LOWER BACK PAIN AND PAIN MANAGEMENT. PATIENT STATES HE HAS A HISTORY OF CHRONIC LOWER BACK PAIN AND NOTES HE RECENTLY RAN OUT OF HIS PAIN MEDICINE AND WILL NOT BE ABLE TO GET A PRESCRIPTION UNTIL THURSDAY. PATIENT IS REQUESTING PAIN MANAGEMENT HERE IN THE ED. PATIENT DENIES SADDLE ANESTHESIA, URINARY INCONTINENCE BOWEL INCONTINENCE, FEVER, CHILLS, SHORTNESS OF BREATH, CHEST PAIN, ABDOMINAL PAIN, NAUSEA, VOMITING, HEADACHE, OR OTHER COMPLAINTS. NO OTHER SYMPTOMS OR MODIFYING FACTORS AT THIS TIME. PATIENT IS ALERT, ORIENTED X 4, AND HAS STEADY GAIT. Chief Complaint: Back Pain Time Seen by MD: 15:14 Primary Care Provider: UNKNOWN Reviewed Notes: Nurses Notes, Medications, Allergies Allergies: Coded Allergies: Droperidol (Verified Allergy, Unknown, 04/20/21) Ketorolac Tromethamine (Verified Allergy, Unknown, 04/20/21) Penicillins (Unverified Allergy, Unknown, 04/11/19) Prochlorperazine (Unverified Allergy, Unknown, 04/11/19) Propranolol (Verified Allergy, Unknown, 11/25/20) Information Source: Patient Mode of Arrival: Ambulatory Severity: Moderate Timing: Days Duration: Since onset, Days Prehospital treatment: None Medication Refill: Ran out of Medication, For: Pain, For: Other (CHRONIC LOWER BACK PAIN) Past Medical History PAST MEDICAL HISTORY: Anxiety, Asthma, COPD, High Lipids, HTN Past Medical History (Other): CHRONIC LOWER BACK PAIN Surgical History: Denies all surgeries Family History Family History: Reviewed,noncontributory to illness Social History Smoker: Cigarettes, Less Than 1 Pack/Day Alcohol: Denies ETOH Use Drugs: Denies Drug Use Lives In: Home Constitutional: denies: chills, diaphoresis, fatigue, fever, malaise, sweats, weakness, others EENTM: denies: blurred vision, double vision, ear bleeding, ear discharge, ear drainage, ear pain, ear ringing, eye pain, eye redness, hearing loss, mouth pain, mouth swelling, nasal discharge, nose bleeding, nose congestion, nose pain, photophobia, tearing, throat pain, throat swelling, voice changes, others Respiratory: denies: cough, hemoptysis, orthopnea, SOB at rest, shortness of breath, SOB with excertion, stridor, wheezing, others Cardiovascular: denies: chest pain, dizzy spells, diaphoresis, Dyspnea on exertion, edema, irregular heart beat, left arm pain, lightheadedness, palpitations, PND, syncope, others Gastrointestinal: denies: abdomen distended, abdominal pain, blood streaked bowels, constipated, diarrhea, dysphagia, difficulty swallowing, hematemesis, melena, nausea, poor appetite, poor fluid intake, rectal bleeding, rectal pain, vomiting, others Genitourinary: denies: burning, dysuria, flank pain, frequency, hematuria, incontinence, penile discharge, penile sore, pain, testicle pain, testicle swelling, urgency, others Neurological: denies: dizziness, fainting, headache, left sided numbness, left sided weakness, numbness, paresthesia, pre-existing deficit, right sided numbness, right sided weakness, seizure, speech problems, tingling, tremors, weakness, others Musculoskeletal: reports: back pain (LOWER BACK PAIN), muscle pain; denies: gout, joint pain, joint swelling, muscle stiffness, neck pain, others Integumetry: denies: bruises, change in color, change in hair/nails, dryness, laceration, lesions, lumps, rash, wounds, others Allergic/Immunocompromised: denies: Difficulty Healing, Frequent Infections, Hives, Itching, others Hematologic/Lymphatic: denies: anemia, blood clots, easy bleeding, easy bruising, swollen glands, others Endocrine: denies: excessive hunger, excessive sweating, excessive thirst, excessive urination, flushing, intolerance to cold, intolerance to heat, unexplained weight gain, unexplained weight loss, others Psychiatric: denies: anxiety, bipolar disorder, depression, hopeless, panic disorder, schizophrenia, sleepless, suicidal, others All Other Systems: Reviewed and Negative Physical Exam General Appearance: No Apparent Distress, Normal HEENT: Normal ENT Inspection, PERRL/EOMI, Pharynx Normal, TMs Normal Neck: Full Range of Motion, Non-Tender, Normal, Normal Inspection Respiratory: Chest Non-Tender, Lungs Clear, No Accessory Muscle Use, No Respiratory Distress, Normal Breath Sounds Cardiovascular: No Edema, No JVD, No Murmur, No Gallop, Normal Peripheral Pulses, Regular Rate/Rhythm Breast Exam: Deferred Gastrointestinal: No Organomegaly, Non Tender, No Pulsatile Mass, Normal Bowel Sounds, Soft Genitalia: Deferred Pelvic: Deferred Rectal: Deferred Extremities: No calf tenderness, Normal capillary refill, Normal inspection, Normal range of motion, Non-tender, No pedal edema Musculoskeletal : Location: Bilateral Extremity Location: Back Apperance: Tenderness: Moderate (MUSCLE SPASM ON LOWER BACK, NO BONY TENDERNESS, SWELLING AND DEFORMITY. ) Neurologic: Alert, credit manager II-XII nml as Tested, No Motor Deficits, Normal Affect, Normal Mood, No Sensory Deficits Cerebellar Function: Normal Reflexes: Normal Skin: Dry, Normal Color, Warm Peripheral Pulses: 2+ carotid (R), 2+ carotid (L), 2+ dorsalis pedis (R), 2+ dorsalis pedis (L) Lymphatic: No Adenopathy Was a procedure done? Was a procedure done?: No Differential Dx Considerations may include: ACUTE EXACERBATION OF CHRONIC LOW BACK PAIN, PAIN MANAGEMENT X-Ray, Labs, Meds, VS Vital Signs Date Time Temp Pulse Resp B/P (MAP) Pulse Ox O2 Delivery O2 Flow Rate FiO2 01/16/24 16:13 103 18 150/104 01/16/24 16:05 98.0 106 20 155/110 (125) 100 98.0 01/16/24 16:05 106 20 100 Room Air 01/16/24 15:31 98.0 106 20 155/110 (125) 100 Current Medications Medications (Trade) Dose Ordered Sig/Olga Route Start Time Stop Time Status Last Admin Hydromorphone HCl (Dilaudid Injection) 2 mg ONCE ONCE IM 01/16/24 16:00 01/16/24 16:01 DC 01/16/24 16:13 Ondansetron HCl (Zofran Po) 4 mg ONCE ONCE PO 01/16/24 16:00 01/16/24 16:01 DC 01/16/24 16:10 X-Ray, Labs, Meds, VS Comment TREATMENT: DILAUDID 2 MG IM, ZOFRAN 4 MG P.O. BASED ON THE PATIENT'S PERSISTENCE OF SYMPTOMS, THE PATIENT SOUGHT OUT ED CONSULT. BASED ON MY PHYSICAL EXAMINATION AND PATIENT'S HISTORY OF CHRONIC BACK PAIN, THERE IS NO NEW INJURY TO THE PATIENT'S BACK. THE PATIENT DENIES ANY NUMBNESS, WEAKNESS, TINGLING SENSATION, URINARY/BOWEL INCONTINENCE. THERE ARE NO SIGNS AND SYMPTOMS OF CAUDA EQUINA. THE PATIENT STATES THAT THE PAIN IS THE SAME WHEN THEY HAVE BACK PAIN FLARE-UP AND THAT THEY ONLY NEED PAIN MEDICATION IN THE ER. AT THIS POINT, THERE IS NO INDICATION FOR ANY IMAGING. THE PATIENT WAS ADVISED TO FOLLOW UP WITH ORTHO SPECIALIST FOR THEIR CHRONIC LOWER BACK PAIN AND PAIN MANAGEMENT DOCTOR FOR PAIN CONTROL. PATIENT WAS GIVEN DILAUDID 2 MG IM AND ZOFRAN 4 MG P.O. FOR PAIN MEDICATION. OVERALL PATIENT'S VITAL SIGNS ARE STABLE AND THE PATIENT WILL BE DISCHARGED HOME. Time of 1ST Reevaluation: 16:40 Reevaluation 1ST: Improved Patient Education/Counseling: Diagnosis, Treatment, Need For Follow Up Family Education/Counseling: Diagnosis, Treatment, Need For Follow Up Medical Screening: No EMC Exist At This Time Departure 1 Departure Time of Disposition: 16:40 Impression: Primary Impression: Acute exacerbation of chronic low back pain Additional Impression: Pain management Disposition: 01 HOME / SELF CARE / HOMELESS Condition: Stable Additional Instructions: FOLLOW-UP WITH PCP IN 1 TO 2 DAYS. RETURN TO ED FOR ANY NEW OR WORSENING SYMPTOMS. Discharged With: Self, Relative Critical Care Note Critical Care Time?: No Stability Stability form required: No I personally scribed for JOCELINE HERNÁNDEZ ([email or web address]) on 01/16/24 at 15:55. Electronically submitted by Daniele Garcia ([email or web address]). JOCELINE HERNÁNDEZ Jan 16, 2024 15:55
[2024-01-16 16:05] VITALS: TEMP 98; O2SAT 100
[2024-01-16] MEDS: ONDANSETRON ODT 4 MG TAB PO ONE (16:10)
[2024-01-16 16:13] VITALS: BP 150/104; PULSE 103; RESP 18
[2024-01-16] MEDS: HYDROmorphone HCL 2 MG/ML VL/or syr IM ONE (16:13)
== END 2024-01-16 16:55 | disposition home or self-care (01) ==
LOC: ER 15:13
DX: G89.29 Other chronic pain (principal); M54.50 Low back pain, unspecified; I10 Essential (primary) hypertension; E78.5 Hyperlipidemia, unspecified; J44.9 Chronic obstructive pulmonary disease, unspecified; F41.9 Anxiety disorder, unspecified; J45.909 Unspecified asthma, uncomplicated; F17.210 Nicotine dependence, cigarettes, uncomplicated; Z88.0 Allergy status to penicillin; Z88.8 Allergy status to other drugs, medicaments and biological substances
CPT/HCPCS: 96372; 99283; J1171; Q0162

== ENCOUNTER 2024-03-06 11:43 | Emergency (ER) | payer MEDICARE, MEDICAID ==
[~2024-03-06] VITALS: Ht 27.9 cm; Wt 58.8 kg
[2024-03-06 11:57] VITALS: BP 141/91; PULSE 90; RESP 16; O2SAT 99
[2024-03-06] MEDS ORDERED: HYDROcodone-ACET 10/325MG TAB PO ONE (12:00)
--- NOTE | 2024-03-06 12:02 | ED.PDOC ---
Back pain HPI HPI Comments 49 y.o male presents to the ED for a chief complaint of back pain. Patient reports a history of chronic back pain with sx in the past, states he ran out of his medication and has an appointment with PCP on 03/08/14 for a refill but states flare up started 2 days ago. Patient is usually of Dilaudid. Patient denies any recent falls, injuries, flank pain, urinary symptoms, fever or chills. Chief Complaint: Back Pain Time Seen by MD: 11:56 Primary Care Provider: UNKNOWN Reviewed Notes: Nurses Notes, Medications, Allergies Allergies: Coded Allergies: Droperidol (Verified Allergy, Unknown, 04/20/21) Ketorolac Tromethamine (Verified Allergy, Unknown, 04/20/21) Penicillins (Unverified Allergy, Unknown, 04/11/19) Prochlorperazine (Unverified Allergy, Unknown, 04/11/19) Propranolol (Verified Allergy, Unknown, 11/25/20) Information Source: Patient Mode of Arrival: Ambulatory Timing: Days (2) Duration: Since onset Location of Back pain: (B) Flank, (B) Lower back, (B) Lumbar Quality: Sharp Onset: Spontaneous Circumstance: Other History of: Chronic Back Pain Modifying Factors: Nothing Past Medical History PAST MEDICAL HISTORY: Anxiety, Asthma, COPD, High Lipids, HTN Past Medical History (Other): Bipolar disorder Surgical History: Denies all surgeries Family History Family History: Reviewed,noncontributory to illness Social History Smoker: Cigarettes, Less Than 1 Pack/Day Alcohol: Denies ETOH Use Drugs: Denies Drug Use Lives In: Home Constitutional: denies: chills, diaphoresis, fatigue, fever, malaise, sweats, weakness, others EENTM: denies: blurred vision, double vision, ear bleeding, ear discharge, ear drainage, ear pain, ear ringing, eye pain, eye redness, hearing loss, mouth pain, mouth swelling, nasal discharge, nose bleeding, nose congestion, nose pain, photophobia, tearing, throat pain, throat swelling, voice changes, others Respiratory: denies: cough, hemoptysis, orthopnea, SOB at rest, shortness of breath, SOB with excertion, stridor, wheezing, others Cardiovascular: denies: chest pain, dizzy spells, diaphoresis, Dyspnea on exertion, edema, irregular heart beat, left arm pain, lightheadedness, palpitations, PND, syncope, others Gastrointestinal: denies: abdomen distended, abdominal pain, blood streaked bowels, constipated, diarrhea, dysphagia, difficulty swallowing, hematemesis, melena, nausea, poor appetite, poor fluid intake, rectal bleeding, rectal pain, vomiting, others Genitourinary: denies: burning, dysuria, flank pain, frequency, hematuria, incontinence, penile discharge, penile sore, pain, testicle pain, testicle swell ing, urgency, others Neurological: denies: dizziness, fainting, headache, left sided numbness, left sided weakness, numbness, paresthesia, pre-existing deficit, right sided numbness, right sided weakness, seizure, speech problems, tingling, tremors, weakness, others Musculoskeletal: reports: back pain; denies: gout, joint pain, joint swelling, muscle pain, muscle stiffness, neck pain, others Integumetry: denies: bruises, change in color, change in hair/nails, dryness, laceration, lesions, lumps, rash, wounds, others Allergic/Immunocompromised: denies: Difficulty Healing, Frequent Infections, Hives, Itching, others Hematologic/Lymphatic: denies: anemia, blood clots, easy bleeding, easy bruising, swollen glands, others Endocrine: denies: excessive hunger, excessive sweating, excessive thirst, excessive urination, flushing, intolerance to cold, intolerance to heat, unexplained weight gain, unexplained weight loss, others Psychiatric: denies: anxiety, bipolar disorder, depression, hopeless, panic disorder, schizophrenia, sleepless, suicidal, others All Other Systems: Reviewed and Negative Physical Exam General Appearance: No Apparent Distress HEENT: Normal ENT Inspection, Pharynx Normal, TMs Normal Neck: Full Range of Motion, Non-Tender, Normal, Normal Inspection Respiratory: Chest Non-Tender, Lungs Clear, No Accessory Muscle Use, No Respiratory Distress, Normal Breath Sounds Cardiovascular: No Edema, No JVD, No Murmur, No Gallop, Normal Peripheral Puls es, Regular Rate/Rhythm Breast Exam: Deferred Gastrointestinal: No Organomegaly, Non Tender, No Pulsatile Mass, Normal Bowel Sounds, Soft Genitalia: Deferred Pelvic: Deferred Rectal: Deferred Extremities: No calf tenderness, Normal capillary refill, No pedal edema Musculoskeletal : Location: Bilateral Extremity Location: Back Apperance: Limited ROM Neurologic: Alert, production line mechanic II-XII nml as Tested, No Motor Deficits, Normal Affect, Normal Mood, No Sensory Deficits Cerebellar Function: Normal Reflexes: Normal Skin: Dry, Normal Color, Warm Lymphatic: No Adenopathy Was a procedure done? Was a procedure done?: No Back Pain Differential Dx Differential Diagnosis: Fracture, Musculoskeletal Pain, Pyelonephritis, Urinary Tract Infection X-Ray, Labs, Meds, VS Vital Signs Date Time Temp Pulse Resp B/P (MAP) Pulse Ox O2 Delivery O2 Flow Rate FiO2 03/06/24 11:57 97.8 90 16 141/91 (108) 99 The patient was given [place] here in the emergency department for pain The patient is being discharged The patient will follow up with the primary care doctor The patient will return to the emergency department the condition worsens. The patient has appointment on Thursday. Time of 1ST Reevaluation: 12:02 Reevaluation 1ST: Unchanged Patient Education/Counseling: Diagnosis, Treatment, Prognosis, Need For Follow Up Family Education/Counseling: No Family Present Departure 1 Departure Time of Disposition: 12:03 Impression: Primary Impression: Musculoskeletal pain Disposition: 01 HOME / SELF CARE / HOMELESS Condition: Fair Discharged With: Self Critical Care Note Critical Care Time?: No Stability Stability form required: No I personally scribed for TWIN AMIN MD ([email or web address]) on 03/06/24 at 12:02. Electronically submitted by Mary Jo Fall ([facility]). TWIN AMIN MD Mar 06, 2024 12:02
== END 2024-03-06 12:39 | disposition home or self-care (01) ==
LOC: ER 11:48
DX: G89.29 Other chronic pain (principal); M54.9 Dorsalgia, unspecified; I10 Essential (primary) hypertension; F31.9 Bipolar disorder, unspecified; J44.9 Chronic obstructive pulmonary disease, unspecified; F17.210 Nicotine dependence, cigarettes, uncomplicated; Z88.0 Allergy status to penicillin; Z88.1 Allergy status to other antibiotic agents; Z88.8 Allergy status to other drugs, medicaments and biological substances

== ENCOUNTER 2024-03-31 11:26 | Emergency (ER) | payer MEDICARE, MEDICAID ==
[~2024-03-31] VITALS: Ht 180.3 cm; Wt 58.9 kg
[2024-03-31] MEDS ORDERED: BACLOFEN 10 MG TAB PO ONE (11:45)
--- NOTE | 2024-03-31 11:50 | ED.PDOC ---
Back pain HPI HPI Comments 49 year old male presents to the ED with chief complaint of lower back pain. Patient reports that he has been experiencing lower back pain for the past 2 days. Patient relays that he has history of spinal fusion and chronic back pain, normally taking Dilaudid for pain management. Patient states he visited his pain management on Thursday and got a prescription for his Dilaudid, however, they did not have it in stock and he has been waiting for it. Patient notes he needs anything that can help relieve his pain just a bit. Patient denies any numbness, weakness, dizziness, headache, fever, chills, dysuria, or chest pain. Time Seen by MD: 11:46 Primary Care Provider: UNKNOWN Reviewed Notes: Nurses Notes, Medications, Allergies Allergies: Coded Allergies: Droperidol (Verified Allergy, Unknown, 04/20/21) Ketorolac Tromethamine (Verified Allergy, Unknown, 04/20/21) Penicillins (Unverified Allergy, Unknown, 04/11/19) Prochlorperazine (Unverified Allergy, Unknown, 04/11/19) Propranolol (Verified Allergy, Unknown, 11/25/20) Information Source: Patient Mode of Arrival: Ambulatory Timing: Hours Duration: Since onset Location of Back pain: (B) Lower back Severity: Moderate Prehospital treatment: None Quality: Sharp Onset: Spontaneous History of: Chronic Back Pain Modifying Factors: Nothing Past Medical History PAST MEDICAL HISTORY: Anxiety, Asthma, COPD, High Lipids, HTN Past Medical History (Other): Chronic back pain Surgical History (Other): Spinal fusion Family History Family History: Reviewed,noncontributory to illness Social History Smoker: Cigarettes, Less Than 1 Pack/Day Alcohol: Denies ETOH Use Drugs: Denies Drug Use Lives In: Home Constitutional: denies: chills, diaphoresis, fatigue, fever, malaise, sweats, weakness, others EENTM: denies: blurred vision, double vision, ear bleeding, ear discharge, ear drainage, ear pain, ear ringing, eye pain, eye redness, hearing loss, mouth pain, mouth swelling, nasal discharge, nose bleeding, nose congestion, nose pain, photophobia, tearing, throat pain, throat swelling, voice changes, others Respiratory: denies: cough, hemoptysis, orthopnea, SOB at rest, shortness of breath, SOB with excertion, stridor, wheezing, others Cardiovascular: denies: chest pain, dizzy spells, diaphoresis, Dyspnea on exertion, edema, irregular heart beat, left arm pain, lightheadedness, palpitations, PND, syncope, others Gastrointestinal: denies: abdomen distended, abdominal pain, blood streaked bowels, constipated, diarrhea, dysphagia, difficulty swallowing, hematemesis, melena, nausea, poor appetite, poor fluid intake, rectal bleeding, rectal pain, vomiting, others Genitourinary: denies: burning, dysuria, flank pain, frequency, hematuria, incontinence, penile discharge, penile sore, pain, testicle pain, testicle swelling, urgency, others Neurological: denies: dizziness, fainting, headache, left sided numbness, left sided weakness, numbness, paresthesia, pre-existing deficit, right sided numbness, right sided weakness, seizure, speech problems, tingling, tremors, weakness, others Musculoskeletal: reports: back pain; denies: gout, joint pain, joint swelling, muscle pain, muscle stiffness, neck pain, others Integumetry: denies: bruises, change in color, change in hair/nails, dryness, laceration, lesions, lumps, rash, wounds, others Allergic/Immunocompromised: denies: Difficulty Healing, Frequent Infections, Hives, Itching, others Hematologic/Lymphatic: denies: anemia, blood clots, easy bleeding, easy bruising, swollen glands, others Endocrine: denies: excessive hunger, excessive sweating, excessive thirst, excessive urination, flushing, intolerance to cold, intolerance to heat, unexplained weight gain, unexplained weight loss, others Psychiatric: denies: anxiety, bipolar disorder, depression, hopeless, panic disorder, schizophrenia, sleepless, suicidal, others All Other Systems: Reviewed and Negative Physical Exam General Appearance: No Apparent Distress, Normal HEENT: Normal ENT Inspection, PERRL/EOMI Neck: Full Range of Motion, Non-Tender, Normal, Normal Inspection Respiratory: Chest Non-Tender, Lungs Clear, No Accessory Muscle Use, No Respiratory Distress, Normal Breath Sounds Cardiovascular: No Edema, No JVD, No Murmur, No Gallop, Normal Peripheral Pulses, Regular Rate/Rhythm Breast Exam: Deferred Gastrointestinal: No Organomegaly, Non Tender, No Pulsatile Mass, Normal Bowel Sounds, Soft Genitalia: Deferred Pelvic: Deferred Rectal: Deferred Extremities: No calf tenderness, Normal capillary refill, Normal inspection, Normal range of motion, Non-tender, No pedal edema Musculoskeletal : Apperance: Normal Neurologic: Alert, psych specialist II-XII nml as Tested, No Motor Deficits, Normal Affect, Normal Mood, No Sensory Deficits Cerebellar Function: Normal Reflexes: Normal Skin: Dry, Normal Color, Warm Lymphatic: No Adenopathy Was a procedure done? Was a procedure done?: No Back Pain Differential Dx Differential Diagnosis: Musculoskeletal Pain X-Ray, Labs, Meds, VS Vital Signs Date Time Temp Pulse Resp B/P (MAP) Pulse Ox O2 Delivery O2 Flow Rate FiO2 03/31/24 11:54 97.6 97 16 99/79 (86) 99 X-Ray, Labs, Meds, VS Comment This 49-year-old male presents requesting p.o. Dilaudid for his chronic back pain. Denies any changes in his back pain. He denies numbness tingling to his extremities. Denies incontinence retention feces or urine. Patient was informed that he will not be getting Dilaudid or any other controlled substance. He stated his understanding. He was given a muscle relaxant. Upon recheck, states he feels substantially better. Patient be discharged home with a prescription for Flexeril. He should follow up with PCP in sign writer letterer or painter for further workup management of his chronic back pain Time of 1ST Reevaluation: 12:46 Reevaluation 1ST: Improved Patient Education/Counseling: Diagnosis, Treatment Family Education/Counseling: No Family Present Departure 1 Departure Time of Disposition: 13:17 Impression: Primary Impression: Musculoskeletal pain Additional Impression: Acute exacerbation of chronic low back pain Disposition: 01 HOME / SELF CARE / HOMELESS Condition: Good Discharged With: Self Critical Care Note Critical Care Time?: No Stability Stability form required: No Heart Score Heart Score: Heart Score Response (Comments) Value History N/A 0 EKG N/A 0 Age N/A 0 Risk Factors N/A 0 Troponin N/A 0 Total 0 I personally scribed for VERN ESTRADA MD ([email or web address]) on 03/31/24 at 11:50. Electronically submitted by Mao Chu ([email or web address]). VERN ESTRADA MD Mar 31, 2024 11:50
[2024-03-31 11:54] VITALS: BP 99/79; PULSE 97; RESP 16; O2SAT 99
== END 2024-03-31 12:45 | disposition left against medical advice (07) ==
LOC: ER 11:26
DX: G89.29 Other chronic pain (principal); M54.50 Low back pain, unspecified; J44.9 Chronic obstructive pulmonary disease, unspecified; I10 Essential (primary) hypertension; E78.5 Hyperlipidemia, unspecified; F17.210 Nicotine dependence, cigarettes, uncomplicated; Z88.0 Allergy status to penicillin; Z98.1 Arthrodesis status; Z88.8 Allergy status to other drugs, medicaments and biological substances

== ENCOUNTER 2024-04-02 11:47 | Emergency (ER) | payer MEDICARE, MEDICAID ==
[~2024-04-02] VITALS: Ht 180.3 cm; Wt 58.0 kg
--- NOTE | 2024-04-02 12:14 | ED.PDOC ---
Back pain HPI HPI Comments 49 y.o male with PMHx of chronic back pain, HTN, hyperlipidemia, COPD, and anxiety, presents to the ED for a chief complaint of back pain that has been ongoing for years. Patient is on a pain management contract, states he is awaiting for his Dilaudid to be refilled. Patient reports pain is the same, no recent changes, falls, new injuries, numbness or tingling sensation to extremities. pt is followed by pain specialist, Dr Ying Time Seen by MD: 12:00 Primary Care Provider: ETHAN Reviewed Notes: Nurses Notes, Medications, Allergies Allergies: Coded Allergies: Droperidol (Verified Allergy, Unknown, 04/20/21) Ketorolac Tromethamine (Verified Allergy, Unknown, 04/20/21) Penicillins (Unverified Allergy, Unknown, 04/11/19) Prochlorperazine (Unverified Allergy, Unknown, 04/11/19) Propranolol (Verified Allergy, Unknown, 11/25/20) Information Source: Patient, Legal Guardian Mode of Arrival: Ambulatory Timing: Came on: Gradually Duration: Since onset Severity: Moderate Quality: Sharp Onset: Other Circumstance: Other History of: Chronic Back Pain Past Medical History PAST MEDICAL HISTORY: Anxiety, Asthma, COPD, High Lipids, HTN Past Medical History (Other): chronic back pain Surgical History: Denies all surgeries Family History Family History: Reviewed,noncontributory to illness Social History Smoker: Cigarettes, Less Than 1 Pack/Day Alcohol: Denies ETOH Use Drugs: Denies Drug Use Lives In: Home Constitutional: denies: chills, diaphoresis, fatigue, fever, malaise, sweats, weakness, others EENTM: denies: blurred vision, double vision, ear bleeding, ear discharge, ear drainage, ear pain, ear ringing, eye pain, eye redness, hearing loss, mouth pain, mouth swelling, nasal discharge, nose bleeding, nose congestion, nose pain, photophobia, tearing, throat pain, throat swelling, voice changes, others Respiratory: denies: cough, hemoptysis, orthopnea, SOB at rest, shortness of breath, SOB with excertion, stridor, wheezing, others Cardiovascular: denies: chest pain, dizzy spells, diaphoresis, Dyspnea on exertion, edema, irregular heart beat, left arm pain, lightheadedness, palpitations, PND, syncope, others Gastrointestinal: denies: abdomen distended, abdominal pain, blood streaked bowels, constipated, diarrhea, dysphagia, difficulty swallowing, hematemesis, melena, nausea, poor appetite, poor fluid intake, rectal bleeding, rectal pain, vomiting, others Genitourinary: denies: burning, dysuria, flank pain, frequency, hematuria, incontinence, penile discharge, penile sore, pain, testicle pain, testicle swelling, urgency, others Neurological: denies: dizziness, fainting, headache, left sided numbness, left sided weakness, numbness, paresthesia, pre-existing deficit, right sided numbnes s, right sided weakness, seizure, speech problems, tingling, tremors, weakness, others Musculoskeletal: reports: back pain; denies: gout, joint pain, joint swelling, muscle pain, muscle stiffness, neck pain, others Integumetry: denies: bruises, change in color, change in hair/nails, dryness, laceration, lesions, lumps, rash, wounds, others Allergic/Immunocompromised: denies: Difficulty Healing, Frequent Infections, Hives, Itching, others Hematologic/Lymphatic: denies: anemia, blood clots, easy bleeding, easy bruising, swollen glands, others Endocrine: denies: excessive hunger, excessive sweating, excessive thirst, excessive urination, flushing, intolerance to cold, intolerance to heat, unexplained weight gain, unexplained weight loss, others Psychiatric: denies: anxiety, bipolar disorder, depression, hopeless, panic disorder, schizophrenia, sleepless, suicidal, others Physical Exam General Appearance: No Apparent Distress, Normal HEENT: Normal ENT Inspection, Pharynx Normal, TMs Normal Neck: Full Range of Motion, Non-Tender, Normal, Normal Inspection Respiratory: Chest Non-Tender, Lungs Clear, No Accessory Muscle Use, No Respiratory Distress, Normal Breath Sounds Cardiovascular: No Edema, No JVD, No Murmur, No Gallop, Normal Peripheral Pulse s, Regular Rate/Rhythm Breast Exam: Deferred Gastrointestinal: No Organomegaly, Non Tender, No Pulsatile Mass, Normal Bowel Sounds, Soft Genitalia: Deferred Pelvic: Deferred Rectal: Deferred Extremities: No calf tenderness, Normal capillary refill, Normal inspection, Normal range of motion, Non-tender, No pedal edema Musculoskeletal : Extremity Location: Back Apperance: Tenderness Neurologic: Alert, legal researcher II-XII nml as Tested, No Motor Deficits, Normal Affect, Normal Mood, No Sensory Deficits Cerebellar Function: Normal Reflexes: Normal Skin: Dry, Normal Color, Warm Lymphatic: No Adenopathy Was a procedure done? Was a procedure done?: No Back Pain Differential Dx Differential Diagnosis: Fracture, Musculoskeletal Pain, Other (chronic pain syndroime) X-Ray, Labs, Meds, VS Vital Signs Date Time Temp Pulse Resp B/P (MAP) Pulse Ox O2 Delivery O2 Flow Rate FiO2 04/02/24 12:27 104 18 98 Room Air 04/02/24 12:27 104 18 147/95 (112) 98 04/02/24 12: 98.9 102 18 126/80 (95) 100 Time of 1ST Reevaluation: 12:10 Reevaluation 1ST: Unchanged Patient Education/Counseling: Diagnosis, Treatment, Prognosis, Need For Follow Up Family Education/Counseling: No Family Present Additional Information I reviewed the following notes from patient's past medical encounters: 03/31/24 03/16/24 01/16/24 all for pain management The following tests were ordered, and results were reviewed by me: Toradol Additional Information was gathered from interviewing the following independent historian: None I reviewed and agreed with the following test results read by other providers:None I discussed treatment and results with medical personnel Departure 1 Departure Time of Disposition: 14:14 Impression: Primary Impression: Chronic lower back pain Qualified Codes: M54.50 - Low back pain, unspecified; G89.29 - Other chronic pain Disposition: 01 HOME / SELF CARE / HOMELESS Condition: Stable Discharged With: Self Critical Care Note Critical Care Time?: No Stability Stability form required: No I personally scribed for KADY GARCIA MD ([email or web address]) on 04/02/24 at 12:14. Electronically submitted by Mary Jo Fall ([facility]). KADY GARCIA MD Apr 02, 2024 12:14
[2024-04-02] MEDS: KETOROLAC TROMETH 30 MG/ML 1ML VIAL IM ONE (12:26)
[2024-04-02 12:27] VITALS: BP 147/95; PULSE 104; RESP 18; O2SAT 98
== END 2024-04-02 16:40 | disposition home or self-care (01) ==
LOC: ER 11:52
DX: M54.50 Low back pain, unspecified (principal); G89.29 Other chronic pain; J45.909 Unspecified asthma, uncomplicated; E78.5 Hyperlipidemia, unspecified; I10 Essential (primary) hypertension; F17.210 Nicotine dependence, cigarettes, uncomplicated; Z88.0 Allergy status to penicillin; Z88.6 Allergy status to analgesic agent

== ENCOUNTER 2024-10-21 13:33 | Emergency (ER) | payer MEDICARE, MEDICAID ==
[~2024-10-21] VITALS: Ht 180.3 cm; Wt 56.2 kg
--- NOTE | 2024-10-21 14:03 | ED.PDOC ---
Back pain HPI HPI Comments HE 49-YEAR-OLD MALE, WITH A PMHX OF CHRONIC BACK PAIN, HYPERLIPIDEMIA, COPD, AND ANXIETY, PRESENTS TO THE ED WITH A C/C OF BACK PAIN FOR YEARS. PATIENT REPORTS TAKING DILAUDID AT HOME. PATIENT CAME TO THE ED UPON RUNNING OUT OF MEDICATION, AND WANTS DILAUDID HERE. PATIENT REPORTS GETTING A PRESCRIPTION BUT WILL NOT RE CEIVE IT UNTIL THURSDAY. PATIENT HAS NO FURTHER COMPLAINTS AT THIS TIME AND OTHERWISE DENIES FURTHER ASSOCIATED SYMPTOMS NUMBNESS, TINGLING, DIZZINESS, HEADACHE, CHEST PAIN, NAUSEA OR VOMITING. PATIENT IS ALERT, ORIENTED X 4, AND HAS STEADY GAIT. Chief Complaint: Back Pain Time Seen by MD: 14:05 Primary Care Provider: ETHAN Reviewed Notes: Nurses Notes, Medications, Allergies Allergies: Coded Allergies: Droperidol (Verified Allergy, Unknown, 04/20/21) Ketorolac Tromethamine (Verified Allergy, Unknown, 04/20/21) Penicillins (Unverified Allergy, Unknown, 04/11/19) Prochlorperazine (Unverified Allergy, Unknown, 04/11/19) Propranolol (Verified Allergy, Unknown, 11/25/20) Information Source: Patient Mode of Arrival: Ambulatory Timing: Days Duration: Since onset Location of Back pain: (B) Lumbar Severity: Moderate Prehospital treatment: None Onset: Spontaneous Circumstance: Other History of: Chronic Back Pain Modifying Factors: Movement, Twisting Associated signs and symptoms: Other (BACK PAIN ) Past Medical History PAST MEDICAL HISTORY: Anxiety, Asthma, COPD, High Lipids, HTN Past Medical History (Other): CHRONIC LOW BACK PAIN, DDD OF LOWER BACK Surgical History: Denies all surgeries Family History Family History: Reviewed,noncontributory to illness Social History Smoker: Cigarettes, Less Than 1 Pack/Day Alcohol: Denies ETOH Use Drugs: Denies Drug Use Lives In: Home Constitutional: denies: chills, diaphoresis, fatigue, fever, malaise, sweats, weakness, others EENTM: denies: blurred vision, double vision, ear bleeding, ear discharge, ear drainage, ear pain, ear ringing, eye pain, eye redness, hearing loss, mouth pain, mouth swelling, nasal discharge, nose bleeding, nose congestion, nose pain, photophobia, tearing, throat pain, throat swelling, voice changes, others Respiratory: denies: cough, hemoptysis, orthopnea, SOB at rest, shortness of breath, SOB with excertion, stridor, wheezing, others Cardiovascular: denies: chest pain, dizzy spells, diaphoresis, Dyspnea on exertion, edema, irregular heart beat, left arm pain, lightheadedness, palpitations, PND, syncope, others Gastrointestinal: denies: abdomen distended, abdominal pain, blood streaked bowels, constipated, diarrhea, dysphagia, difficulty swallowing, hematemesis, melena, nausea, poor appetite, poor fluid intake, rectal bleeding, rectal pain, vomiting, others Genitourinary: denies: burning, dysuria, flank pain, frequency, hematuria, incontinence, penile discharge, penile sore, pain, testicle pain, testicle swelling, urgency, others Neurological: denies: dizziness, fainting, headache, left sided numbness, left sided weakness, numbness, paresthesia, pre-existing deficit, right sided numb ness, right sided weakness, seizure, speech problems, tingling, tremors, weakness, others Musculoskeletal: reports: back pain, muscle pain; denies: gout, joint pain, joint swelling, muscle stiffness, neck pain, others Integumetry: denies: bruises, change in color, change in hair/nails, dryness, laceration, lesions, lumps, rash, wounds, others Allergic/Immunocompromised: denies: Difficulty Healing, Frequent Infections, Hives, Itching, others Hematologic/Lymphatic: denies: anemia, blood clots, easy bleeding, easy bruising, swollen glands, others Endocrine: denies: excessive hunger, excessive sweating, excessive thirst, excessive urination, flushing, intolerance to cold, intolerance to heat, unexplained weight gain, unexplained weight loss, others Psychiatric: denies: anxiety, bipolar disorder, depression, hopeless, panic disorder, schizophrenia, sleepless, suicidal, others All Other Systems: Reviewed and Negative Physical Exam General Appearance: No Apparent Distress, Normal HEENT: Normal ENT Inspection, PERRL/EOMI, Pharynx Normal, TMs Normal Neck: Full Range of Motion, Non-Tender, Normal, Normal Inspection Respiratory: Chest Non-Tender, Lungs Clear, No Accessory Muscle Use, No Respiratory Distress, Normal Breath Sounds Cardiovascular: No Edema, No JVD, No Murmur, No Gallop, Normal Peripheral Pulses, Regular Rate/Rhythm Breast Exam: Deferred Gastrointestinal: No Organomegaly, Non Tender, No Pulsatile Mass, Normal Bowel Sounds, Soft Genitalia: Deferred Pelvic: Deferred Rectal: Deferred Extremities: No calf tenderness, Normal capillary refill, Normal inspection, Normal range of motion, Non-tender, No pedal edema Musculoskeletal : Location: Bilateral Extremity Location: Back Apperance: Tenderness: Moderate (TENDERNESS AND MUSCLE SPASM ON LOW BACK, NO BONY TENDERNESS, SWELLING AND DEFORMITY. ) Neurologic: Alert, scuba instructor II-XII nml as Tested, No Motor Deficits, Normal Affect, Normal Mood, No Sensory Deficits Cerebellar Function: Normal Reflexes: Normal Skin: Dry, Normal Color, Warm Peripheral Pulses: 2+ carotid (R), 2+ carotid (L), 2+ dorsalis pedis (R), 2+ dorsalis pedis (L) Lymphatic: No Adenopathy Was a procedure done? Was a procedure done?: No Back Pain Differential Dx Differential Diagnosis: Fracture, Musculoskeletal Pain, Urinary Tract Infection, Other (CHRONIC LOW BACK PAIN EXACERBATION, PAIN MANAGEMENT ) X-Ray, Labs, Meds, VS Vital Signs Date Time Temp Pulse Resp B/P (MAP) Pulse Ox O2 Delivery O2 Flow Rate FiO2 10/21/24 14:20 86 18 128/91 10/21/24 13:36 97.4 93 18 112/82 98 97.4 Current Medications Medications (Trade) Dose Ordered Sig/Olga Route Start Time Stop Time Status Last Admin Hydromorphone HCl (Dilaudid Injection) 2 mg ONCE ONCE IM 10/21/24 14:15 10/21/24 14:16 DC 10/21/24 14:20 Ondansetron HCl (Zofran Po) 4 mg ONCE ONCE PO 10/21/24 14:15 10/21/24 14:16 DC 10/21/24 14:[address] [address] Ph: [phone] DIAGNOSTIC IMAGING Diagnostic Imaging Report : [id number] Signed PATIENT: AYAD RAMIREZ ACCT: [id number] UNIT: [id number] : 1975 LOC: ER ROOM / BED: / AGE / SEX: 49 / M ADM STATUS: REG ER SERVICE 1342 ORDERING PHYSICIAN: JOCELINE HERNÁNDEZ PROCEDURE(s): LUMB2 - LUMBAR SPINE 3 VIEW REASON: PAIN, NO INJURY ORDER NUMBER(s): [id number], ACCESSION NUMBER(s): [id number] XY LUMBAR SPINE 3 VIEW, HISTORY: PAIN, NO INJURY COMPARISON: LUMBAR SPINE LTD on DOS: 09/01/20 TECHNICAL DATA: Frontal and lateral views were obtained of the lumbar spine. FINDINGS: There are 5 lumbar type vertebral bodies. Lumbar curvature is within normal limits. There is no spondylolisthesis. Vertebral body heights are maintained. Disk heights are normal. The facet joints appear normal. The sacroiliac joints are symmetric. Paraspinal soft tissues are within normal limits. L4-5 hardware with disc spacer appear intact and stable to prior. IMPRESSION: No acute fracture or dislocation of the lumbar spine. ATED BY: DONNELL THOMPSON MD DICTATED DATE/TIME: 10/21/241419 SIGNED BY: DONNELL THOMPSON MD SIGNED DATE/TIME: 10/21/241419 CC: X-Ray, Labs, Meds, VS Comment EXTERNAL MEDICAL RECORDS REVIEWED: [NONE] INDEPENDENT HISTORIANS: [NONE] SOCIAL DETERMINANTS OF HEALTH: [NONE] LABS ORDERED: NONE REVIEWED AND INTERPRETED RESULTS: NONE IMAGING ORDERED: LUMBAR SPINE X-RAY: DDD OF LOW BACK TREATMENTS ORDERED: ZOFRAN 4MG AND DILAUDID INJECTION IM PROCEDURES PERFORMED: NONE CRITICAL CARE TIME: NONE I HAVE DISCUSSED THE PATIENT WITH THE ATTENDING PHYSICIAN, DR. CORRAL, AND HE AGREES WITH THE PATIENT'S PLAN OF CARE AND DISPOSITION. BASED ON HISTORY OF PRESENT ILLNESS, AND PHYSICAL EXAM, PATIENT WILL BE DISCHARGED HOME. SHARED DECISION MAKING: DISCUSSED WITH PATIENT THAT THEIR WORKUP WAS NORMAL. PATIENT INSTRUCTED TO FOLLOW UP WITH PRIMARY CARE PROVIDER IN 1-2 DAYS FOR RE- EVALUATION OF SYMPTOMS. PATIENT VERBALIZES UNDERSTANDING TO RETURN TO ED FOR NEW OR WORSENING SYMPTOMS OR IF FOLLOW UP WITH PCP CANNOT BE OBTAINED. PATIENT FEELS COMFORTABLE GOING HOME AT THIS TIME. ALL QUESTIONS ADDRESSED AT TIME OF DISCHARGE. Images Reviewed?: Images reviewed and evaluated by me Time of 1ST Reevaluation: 15:00 Reevaluation 1ST: Improved Patient Education/Counseling: Diagnosis, Treatment, Need For Follow Up Family Education/Counseling: Diagnosis, Treatment, Need For Follow Up Medical Screening: No EMC Exist At This Time SEPSIS Sepsis Screen Date sepsis recognized/suspect: Oct 21, 2024 Time Sepsis recognized/suspect: 1338 Recent Procedure: No (T) On Antibiotic Therapy: No Respiratory Rate >20: No Heart Rate >90: No Temp<36 C (96.8 F) or >38.3 C: No SBP <90 or MAP <65 mmHG: No New Acute Mental Status Change: No Is the patient on CPAP, BIPAP,: No Physician Orders Lumbar Spine 3 View (10/21/24 13:42) Vital Signs Date Time Temp Pulse Resp B/P (MAP) Pulse Ox O2 Delivery O2 Flow Rate FiO2 10/21/24 14:20 86 18 128/91 10/21/24 13:36 97.4 93 18 112/82 98 97.4 Medications Medications Dose Ordered Sig/Olga Route Start Time Stop Time Status Last Admin Dose Admin Hydromorphone HCl 2 mg ONCE ONCE IM 10/21/24 14:15 10/21/24 14:16 DC 10/21/24 14:20 Ondansetron HCl 4 mg ONCE ONCE PO 10/21/24 14:15 10/21/24 14:16 DC 10/21/24 14:21 Departure 1 Departure Time of Disposition: 15:00 Impression: Primary Impression: Acute exacerbation of chronic low back pain Additional Impression: Pain management Disposition: HOME / SELF CARE / HOMELESS Condition: Stable Additional Instructions: FOLLOW-UP WITH PCP IN 1 TO 2 DAYS. TAKE MEDICATIONS PRESCRIBED. RETURN TO ED FOR ANY NEW OR WORSENING SYMPTOMS. Discharged With: Self, Spouse Critical Care Note Critical Care Time?: No Stability Stability form required: No Heart Score Heart Score: Heart Score Response (Comments) Value History N/A 0 EKG N/A 0 Age N/A 0 Risk Factors N/A 0 Troponin N/A 0 Total 0 I personally scribed for JOCELINE HERNÁNDEZ ([email or web address]) on 10/21/24 at 14:03. Electronically submitted by Nehal Oquendo ([email or web address]). I personally scribed for JOCELINE HERNÁNDEZ ([email or web address]) on 10/21/24 at 14:10. Electronically submitted by Nehal Oquendo ([facility]). I personally scribed for JOCELINE HERNÁNDEZ ([email or web address]) on 10/21/24 at 14:11. Electronically submitted by Nehal Oquendo ([email or web address]). I personally scribed for JOCELIEN HERNÁNDEZ ([email or web address]) on 10/21/24 at 14:29. Electronically submitted by Nehal Oquendo ([email or web address]). JOCELINE HERNÁNDEZ Oct 21, 2024 14:03
[2024-10-21] MEDS: HYDROmorphone HCL 2 MG/ML VL/or syr IM ONE (14:20)
[2024-10-21] MEDS: ONDANSETRON ODT 4 MG TAB PO ONE (14:21)
--- NOTE | 2024-10-21 14:23 | DVH ---
XY LUMBAR SPINE 3 VIEW, HISTORY: PAIN, NO INJURY COMPARISON: LUMBAR SPINE LTD on DOS: 09/01/20 TECHNICAL DATA: Frontal and lateral views were obtained of the lumbar spine. FINDINGS: There are 5 lumbar type vertebral bodies. Lumbar curvature is within normal limits. There is no spond ylolisthesis. Vertebral body heights are maintained. Disk heights are normal. The facet joints appear normal. The sacroiliac joints are symmetric. Paraspinal soft tissues are within normal limits. L4-5 hardware with disc spacer appear intact and stable to prior. IMPRESSION: No acute fracture or dislocation of the lumbar spine.
[2024-10-21 14:48] VITALS: BP 108/79; PULSE 82; RESP 18; TEMP 98.6; O2SAT 96
== END 2024-10-21 14:50 | disposition home or self-care (01) ==
LOC: ER 13:33
DX: G89.29 Other chronic pain (principal); F17.210 Nicotine dependence, cigarettes, uncomplicated; F41.9 Anxiety disorder, unspecified; E78.5 Hyperlipidemia, unspecified; I10 Essential (primary) hypertension; J44.89 Other specified chronic obstructive pulmonary disease; Z88.0 Allergy status to penicillin
CPT/HCPCS: 72100; 96372; 99283; J1171; Q0162

== ENCOUNTER 2025-01-19 09:34 | Emergency (ER) | payer MEDICARE, MEDICAID ==
[~2025-01-19] VITALS: Ht 180.3 cm; Wt 58.2 kg
--- NOTE | 2025-01-19 10:31 | ED.PDOC ---
History of Present Illness HPI Comments A 50 YEAR OLD MALE PRESENTS TO THE ED WITH COMPLAINT OF CHRONIC LOWER BACK PAIN AND PAIN MANAGEMENT. PATIENT STATES HE HAS A HISTORY OF CHRONIC LOWER BACK PAIN FOR SEVERAL YEARS AND USUALLY TAKES DILAUDID 8 MG P.O. AT HOME, BUT RAN OUT OF HIS PRESCRIPTION AND WILL NOT HAVE A REFILL FOR THIS MEDICATION UNTIL TOMORROW. PATIENT IS REQUESTING DILAUDID INJECTION HERE IN THE ED TO MANAGE HIS CHRONIC LOWER BACK PAIN. PATIENT DENIES SADDLE ANESTHESIA, URINARY INCONTINENCE, BOWEL INCONTINENCE, FEVER, CHILLS, SHORTNESS OF BREATH, CHEST PAIN, ABDOMINAL PAIN, NAUSEA, VOMITING, HEADACHE, OR OTHER COMPLAINTS. NO OTHER SYMPTOMS OR MODIFYING FACTORS AT THIS TIME. PATIENT IS ALERT, ORIENTED X 4, AND HAS STEADY GAIT. Chief Complaint: Back Pain Time Seen by MD: 09:42 Primary Care Provider: ETHAN Reviewed Notes: Nurses Notes, Medications, Allergies Allergies: Coded Allergies: Droperidol (Verified Allergy, Unknown, 04/20/21) Ketorolac Tromethamine (Verified Allergy, Unknown, 04/20/21) Penicillins (Unverified Allergy, Unknown, 04/11/19) Prochlorperazine (Unverified Allergy, Unknown, 04/11/19) Propranolol (Verified Allergy, Unknown, 11/25/20) Information Source: Patient Mode of Arrival: Ambulatory Severity: Moderate Timing: Days Duration: Since onset, Days Prehospital treatment: None Medication Refill: For: Other (CHRONIC LOWER BACK PAIN, PAIN MANAGEMENT) Past Medical History PAST MEDICAL HISTORY: Anxiety, Asthma, COPD, High Lipids, HTN Past Medical History (Other): CHRONIC LOWER BACK PAIN Surgical History (Other): SPINAL FUSION Family History Family History: Reviewed,noncontributory to illness Social History Smoker: Cigarettes, Less Than 1 Pack/Day Alcohol: Denies ETOH Use Drugs: Denies Drug Use Lives In: Home Constitutional: denies: chills, diaphoresis, fatigue, fever, malaise, sweats, weakness, others EENTM: denies: blurred vision, double vision, ear bleeding, ear discharge, ear drainage, ear pain, ear ringing, eye pain, eye redness, hearing loss, mouth pain, mouth swelling, nasal discharge, nose bleeding, nose congestion, nose pain, photophobia, tearing, throat pain, throat swelling, voice changes, others Respiratory: denies: cough, hemoptysis, orthopnea, SOB at rest, shortness of breath, SOB with excertion, stridor, wheezing, others Cardiovascular: denies: chest pain, dizzy spells, diaphoresis, Dyspnea on exertion, edema, irregular heart beat, left arm pain, lightheadedness, palpitations, PND, syncope, others Gastrointestinal: denies: abdomen distended, abdominal pain, blood streaked bowels, constipated, diarrhea, dysphagia, difficulty swallowing, hematemesis, melena, nausea, poor appetite, poor fluid intake, rectal bleeding, rectal pain, vomiting, others Genitourinary: denies: burning, dysuria, flank pain, frequency, hematuria, incontinence, penile discharge, penile sore, pain, testicle pain, testicle swelling, urgency, others Neurological: denies: dizziness, fainting, headache, left sided numbness, left sided weakness, numbness, paresthesia, pre-existing deficit, right sided numbness, right sided weakness, seizure, speech problems, tingling, tremors, weakness, others Musculoskeletal: reports: back pain (CHRONIC LOWER BACK PAIN), muscle pain; denies: gout, joint pain, joint swelling, muscle stiffness, neck pain, others Integumetry: denies: bruises, change in color, change in hair/nails, dryness, laceration, lesions, lumps, rash, wounds, others Allergic/Immunocompromised: denies: Difficulty Healing, Frequent Infections, Hives, Itching, others Hematologic/Lymphatic: denies: anemia, blood clots, easy bleeding, easy bruising, swollen glands, others Endocrine: denies: excessive hunger, excessive sweating, excessive thirst, excessive urination, flushing, intolerance to cold, intolerance to heat, unexplained weight gain, unexplained weight loss, others Psychiatric: denies: anxiety, bipolar disorder, depression, hopeless, panic disorder, schizophrenia, sleepless, suicidal, others All Other Systems: Reviewed and Negative Physical Exam General Appearance: No Apparent Distress, Normal HEENT: Normal ENT Inspection, PERRL/EOMI, Pharynx Normal, TMs Normal Neck: Full Range of Motion, Non-Tender, Normal, Normal Inspection Respiratory: Chest Non-Tender, Lungs Clear, No Accessory Muscle Use, No Respiratory Distress, Normal Breath Sounds Cardiovascular: No Edema, No JVD, No Murmur, No Gallop, Normal Peripheral Pulses, Regular Rate/Rhythm Breast Exam: Deferred Gastrointestinal: No Organomegaly, Non Tender, No Pulsatile Mass, Normal Bowel Sounds, Soft Genitalia: Deferred Pelvic: Deferred Rectal: Deferred Extremities: No calf tenderness, Normal capillary refill, Normal inspection, Normal range of motion, Non-tender, No pedal edema Musculoskeletal : Location: Bilateral Extremity Location: Back Apperance: Tenderness: Moderate (TENDERNESS AND MUSCLE SPASM ON LOW back, NO BONY TENDERNESS, SWELLING AND DEFORMITY. ) Neurologic: Alert, data visualization developer II-XII nml as Tested, No Motor Deficits, Normal Affect, Normal Mood, No Sensory Deficits Cerebellar Function: Normal Reflexes: Normal Skin: Dry, Normal Color, Warm Peripheral Pulses: 2+ carotid (R), 2+ carotid (L) Lymphatic: No Adenopathy Was a procedure done? Was a procedure done?: No Differential Dx Considerations may include: CHRONIC LOWER BACK PAIN, ACUTE EXACERBATION OF CHRONIC LOW BACK PAIN, PAIN MANAGEMENT X-Ray, Labs, Meds, VS Vital Signs Date Time Temp Pulse Resp B/P (MAP) Pulse Ox O2 Delivery O2 Flow Rate FiO2 01/19/25 11:15 95 18 163/103 01/19/25 11:14 98.1 95 18 163/103 (123) 98 98.1 01/19/25 11:14 95 18 98 Room Air 01/19/25 10:45 96 18 114/70 01/19/25 09:36 98.4 101 16 159/80 98 98.4 Current Medications Medications (Trade) Dose Ordered Sig/Olga Route Start Time Stop Time Status Last Admin Hydromorphone HCl (Dilaudid Injection) 2 mg ONCE ONCE IM 01/19/25 10:30 01/19/25 10:31 DC 01/19/25 10:45 Ondansetron HCl (Zofran Po) 4 mg ONCE ONCE PO 01/19/25 10:30 01/19/25 10:31 DC 01/19/25 10:45 X-Ray, Labs, Meds, VS Comment EXTERNAL MEDICAL RECORDS REVIEWED: [NONE] INDEPENDENT HISTORIANS: [NONE] SOCIAL DETERMINANTS OF HEALTH: [NONE] LABS ORDERED: NONE REVIEWED AND INTERPRETED RESULTS: NONE IMAGING ORDERED: NONE BASED ON THE PATIENT'S PERSISTENCE OF SYMPTOMS, THE PATIENT SOUGHT OUT ED CONSULT. BASED ON MY PHYSICAL EXAMINATION AND PATIENT'S HISTORY OF CHRONIC BACK PAIN, THERE IS NO NEW INJURY TO THE PATIENT'S BACK. THE PATIENT DENIES ANY NUMBNESS, WEAKNESS, TINGLING SENSATION, URINARY/BOWEL INCONTINENCE. THERE ARE NO SIGNS AND SYMPTOMS OF CAUDA EQUINA. THE PATIENT STATES THAT THE PAIN IS THE SAME WHEN THEY HAVE BACK PAIN FLARE-UP AND THAT THEY ONLY NEED PAIN MEDICATION IN THE ER. AT THIS POINT, THERE IS NO INDICATION FOR ANY IMAGING. THE PATIENT WAS ADVIS ED TO FOLLOW UP WITH ORTHO SPECIALIST FOR THEIR CHRONIC LOWER BACK PAIN AND PAIN MANAGEMENT DOCTOR FOR PAIN CONTROL. PATIENT WAS GIVEN DILAUDID 2 MG IM AND ZOFRAN 4 MG PO FOR PAIN MEDICATION. OVERALL PATIENT'S VITAL SIGNS ARE STABLE AND THE PATIENT WILL BE DISCHARGED HOME. TREATMENTS ORDERED: DILAUDID 2 MG IM, ZOFRAN 4 MG PO PROCEDURES PERFORMED: NONE CRITICAL CARE TIME: NONE I HAVE DISCUSSED THE PATIENT WITH THE ATTENDING PHYSICIAN DR. WALLACE AND HE AGREES WITH THE PATIENT'S PLAN OF CARE AND DISPOSITION. BASED ON HISTORY OF PRESENT ILLNESS, AND PHYSICAL EXAM, PATIENT WILL BE DISCHARGED HOME. SHARED DECISION MAKING: PATIENT INSTRUCTED TO FOLLOW UP WITH PRIMARY CARE PROVIDER IN 1-2 DAYS FOR RE-EVALUATION OF SYMPTOMS. PATIENT VERBALIZES UNDERSTANDING TO RETURN TO ED FOR NEW OR WORSENING SYMPTOMS OR IF FOLLOW UP WITH PCP CANNOT BE OBTAINED. PATIENT FEELS COMFORTABLE GOING HOME AT THIS TIME. ALL QUESTIONS ADDRESSED AT TIME OF DISCHARGE. Time of 1ST Reevaluation: 11:21 Reevaluation 1ST: Improved Patient Education/Counseling: Diagnosis, Treatment, Need For Follow Up Family Education/Counseling: Diagnosis, Treatment, Need For Follow Up Medical Screening: No EMC Exist At This Time SEPSIS Sepsis Screen Date sepsis recognized/suspect: Jan 19, 2025 Time Sepsis recognized/suspect: 09 Recent Procedure: No On Antibiotic Therapy: No Respiratory Rate >20: No Heart Rate >90: Yes Temp<36 C (96.8 F) or >38.3 C: No SBP <90 or MAP <65 mmHG: No New Acute Mental Status Change: No Is the patient on CPAP, BIPAP,: No Vital Signs Date Time Temp Pulse Resp B/P (MAP) Pulse Ox O2 Delivery O2 Flow Rate FiO2 01/19/25 11:15 95 18 163/103 01/19/25 11:14 98.1 95 18 163/103 (123) 98 98.1 01/19/25 11:14 95 18 98 Room Air 01/19/25 10:45 96 18 114/70 01/19/25 09:36 98.4 101 16 159/80 98 98.4 Medications Medications Dose Ordered Sig/Olga Route Start Time Stop Time Status Last Admin Dose Admin Hydromorphone HCl 2 mg ONCE ONCE IM 01/19/25 10:30 01/19/25 10:31 DC 01/19/25 10:45 Ondansetron HCl 4 mg ONCE ONCE PO 01/19/25 10:30 01/19/25 10:31 DC 01/19/25 10:45 Departure 1 Departure Time of Disposition: 11:21 Impression: Primary Impression: Acute exacerbation of chronic low back pain Additional Impression: Pain management Disposition: HOME / SELF CARE / HOMELESS Condition: Stable Additional Instructions: FOLLOW-UP WITH PCP IN 1 TO 2 DAYS. RETURN TO ED FOR ANY NEW OR WORSENING SYMPTOMS. Discharged With: Self, Relative Critical Care Note Critical Care Time?: No Stability Stability form required: No I personally scribed for JOCELINE HERNÁNDEZ ([email or web address]) on 01/19/25 at 10:31. Electronically submitted by Daniele Garcia ([email or web address]). JOCELINE HERNÁNDEZ Jan 19, 2025 10:31
[2025-01-19] MEDS: ONDANSETRON ODT 4 MG TAB PO ONE (10:45)
[2025-01-19] MEDS: HYDROmorphone HCL 2 MG/ML VL/or syr IM ONE (10:45)
[2025-01-19 11:14] VITALS: TEMP 98.1; O2SAT 98
[2025-01-19 11:15] VITALS: BP 163/103; PULSE 95; RESP 18
== END 2025-01-19 11:18 | disposition home or self-care (01) ==
LOC: ER 09:34
DX: G89.29 Other chronic pain (principal); M54.50 Low back pain, unspecified; F17.210 Nicotine dependence, cigarettes, uncomplicated; F41.9 Anxiety disorder, unspecified; J44.89 Other specified chronic obstructive pulmonary disease; E78.5 Hyperlipidemia, unspecified; I10 Essential (primary) hypertension; Z98.1 Arthrodesis status; Z88.0 Allergy status to penicillin
CPT/HCPCS: 96372; 99283; J1171; Q0162

== ENCOUNTER 2025-02-10 14:38 | Emergency (ER) | payer MEDICARE, MEDICAID ==
[~2025-02-10] VITALS: Ht 180.3 cm; Wt 61.0 kg
--- NOTE | 2025-02-10 15:58 | ED.PDOC ---
History of Present Illness HPI Comments A 50 YEAR OLD MALE PRESENTS TO THE ED WITH COMPLAINT OF CHRONIC LOWER BACK PAIN. PATIENT STATES HE HAS A HISTORY OF CHRONIC LOWER BACK PAIN AND USUALLY TAKES DILAUDID 8 MG P.O. TO MANAGE HIS PAIN, BUT RAN OUT OF HIS MEDICATION AND HAS BEEN ABLE TO GET A REFILL FOR THIS MEDICATION. PATIENT IS REQUESTING A DILAUDID INJECTION HERE IN THE ED TO MANAGE HIS CHRONIC LOWER BACK PAIN. PATIENT DENIES SADDLE ANESTHESIA, URINARY INCONTINENCE, BOWEL INCONTINENCE, FEVER, CHILLS, SHORTNESS OF BREATH, CHEST PAIN, ABDOMINAL PAIN, NAUSEA, VOMITING, HEADACHE, OR OTHER COMPLAINTS. NO OTHER SYMPTOMS OR MODIFYING FACTORS AT THIS TIME. PATIENT IS ALERT, ORIENTED X 4, AND HAS STEADY GAIT. Chief Complaint: Back Pain Time Seen by MD: 15:16 Primary Care Provider: ETHAN Corea Notes: Nurses Notes, Medications, Allergies Allergies: Coded Allergies: Droperidol (Verified Allergy, Unknown, 04/20/21) Ketorolac Tromethamine (Verified Allergy, Unknown, 04/20/21) [place] (Verified Allergy, Unknown, 02/10/25) Penicillins (Unverified Allergy, Unknown, 04/11/19) Prochlorperazine (Unverified Allergy, Unknown, 04/11/19) Propranolol (Verified Allergy, Unknown, 11/25/20) Information Source: Patient Mode of Arrival: Ambulatory Severity: Moderate Timing: Days Duration: Since onset, Days Prehospital treatment: None Medication Refill: Ran out of Medication, For: Pain, For: Other (CHRONIC LOWER BACK PAIN, PAIN MANAGEMENT) Past Medical History PAST MEDICAL HISTORY: Anxiety, Asthma, COPD, High Lipids, HTN Past Medical History (Other): CHRONIC LOWER BACK PAIN, MIGRAINE HEADACHES Surgical History: Denies all surgeries Family History Family History: Reviewed,noncontributory to illness Social History Smoker: Cigarettes, Less Than 1 Pack/Day Alcohol: Denies ETOH Use Drugs: Denies Drug Use Lives In: Home Constitutional: denies: chills, diaphoresis, fatigue, fever, malaise, sweats, weakness, others EENTM: denies: blurred vision, double vision, ear bleeding, ear discharge, ear drainage, ear pain, ear ringing, eye pain, eye redness, hearing loss, mouth pain, mouth swelling, nasal discharge, nose bleeding, nose congestion, nose pain, photophobia, tearing, throat pain, throat swelling, voice changes, others Respiratory: denies: cough, hemoptysis, orthopnea, SOB at rest, shortness of breath, SOB with excertion, stridor, wheezing, others Cardiovascular: denies: chest pain, dizzy spells, diaphoresis, Dyspnea on ex ertion, edema, irregular heart beat, left arm pain, lightheadedness, palpitations, PND, syncope, others Gastrointestinal: denies: abdomen distended, abdominal pain, blood streaked bowels, constipated, diarrhea, dysphagia, difficulty swallowing, hematemesis, melena, nausea, poor appetite, poor fluid intake, rectal bleeding, rectal pain, vomiting, others Genitourinary: denies: burning, dysuria, flank pain, frequency, hematuria, incontinence, penile discharge, penile sore, pain, testicle pain, testicle swelling, urgency, others Neurological: denies: dizziness, fainting, headache, left sided numbness, left sided weakness, numbness, paresthesia, pre-existing deficit, right sided numbness, right sided weakness, seizure, speech problems, tingling, tremors, weakness, others Musculoskeletal: reports: back pain, muscle pain; denies: gout, joint pain, joint swelling, muscle stiffness, neck pain, others Integumetry: denies: bruises, change in color, change in hair/nails, dryness, laceration, lesions, lumps, rash, wounds, others Allergic/Immunocompromised: denies: Difficulty Healing, Frequent Infections, Hives, Itching, others Hematologic/Lymphatic: denies: anemia, blood clots, easy bleeding, easy bruising, swollen glands, others Endocrine: denies: excessive hunger, excessive sweating, excessive thirst, excessive urination, flushing, intolerance to cold, intolerance to heat, unexplained weight gain, unexplained weight loss, others Psychiatric: denies: anxiety, bipolar disorder, depression, hopeless, panic disorder, schizophrenia, sleepless, suicidal, others All Other Systems: Reviewed and Negative Physical Exam General Appearance: No Apparent Distress, Normal HEENT: Normal ENT Inspection, PERRL/EOMI, Pharynx Normal, TMs Normal Neck: Full Range of Motion, Non-Tender, Normal, Normal Inspection Respiratory: Chest Non-Tender, Lungs Clear, No Accessory Muscle Use, No Respiratory Distress, Normal Breath Sounds Cardiovascular: No Edema, No JVD, No Murmur, No Gallop, Normal Peripheral Pulses, Regular Rate/Rhythm Breast Exam: Deferred Gastrointestinal: No Organomegaly, Non Tender, No Pulsatile Mass, Normal Bowel Sounds, Soft Genitalia: Deferred Pelvic: Deferred Rectal: Deferred Extremities: No calf tenderness, Normal capillary refill, Normal inspection, Normal range of motion, Non-tender, No pedal edema Musculoskeletal : Location: Bilateral Extremity Location: Back Apperance: Tenderness: Moderate (TENDERNESS ON LOWER BACK, NO BONY TENDERNESS, SWELLING AND DEFORMITY. ) Neurologic: Alert, wash driller helper II-XII nml as Tested, No Motor Deficits, Normal Affect, Normal Mood, No Sensory Deficits Cerebellar Function: Normal Reflexes: Normal Skin: Dry, Normal Color, Warm Peripheral Pulses: 2+ carotid (R), 2+ carotid (L) Lymphatic: No Adenopathy Was a procedure done? Was a procedure done?: No Differential Dx Considerations may include: CHRONIC LOWER BACK PAIN, ACUTE EXACERBATION OF CHRONIC PAIN, PAIN MANAGEMENT X-Ray, Labs, Meds, VS Vital Signs Date Time Temp Pulse Resp B/P (MAP) Pulse Ox O2 Delivery O2 Flow Rate FiO2 02/10/25 14:40 98.2 111 18 154/108 95 98.2 X-Ray, Labs, Meds, VS Comment EXTERNAL MEDICAL RECORDS REVIEWED: [NONE] INDEPENDENT HISTORIANS: [NONE] SOCIAL DETERMINANTS OF HEALTH: [NONE] LABS ORDERED: NONE REVIEWED AND INTERPRETED RESULTS: NONE IMAGING ORDERED: NONE BASED ON THE PATIENT'S PERSISTENCE OF SYMPTOMS, THE PATIENT SOUGHT OUT ED CONSULT. BASED ON MY PHYSICAL EXAMINATION AND PATIENT'S HISTORY OF CHRONIC BACK PAIN, THERE IS NO NEW INJURY TO THE PATIENT'S BACK. THE PATIENT DENIES ANY NUMBNESS, WEAKNESS, TINGLING SENSATION, URINARY/BOWEL INCONTINENCE. THERE ARE NO SIGNS AND SYMPTOMS OF CAUDA EQUINA. THE PATIENT STATES THAT THE PAIN IS THE SAME WHEN THEY HAVE BACK PAIN FLARE-UP AND THAT THEY ONLY NEED PAIN MEDICATION IN THE ER. AT THIS POINT, THERE IS NO INDICATION FOR ANY IMAGING. THE PATIENT WAS ADVISED TO FOLLOW UP WITH ORTHO SPECIALIST FOR THEIR CHRONIC LOWER BACK PAIN AND PAIN MANAGEMENT DOCTOR FOR PAIN CONTROL. PATIENT WAS GIVEN DILAUDID 2 MG IM, ZOFRAN 4 MG P.O. FOR PAIN MEDICATION. OVERALL PATIENT'S VITAL SIGNS ARE STABLE AND THE PATIENT WILL BE DISCHARGED HOME. TREATMENTS ORDERED: DILAUDID 2 MG IM, ZOFRAN 4 MG P.O. PROCEDURES PERFORMED: NONE CRITICAL CARE TIME: NONE I HAVE DISCUSSED THE PATIENT WITH THE ATTENDING PHYSICIAN DR. WALLACE AND HE AGREES WITH THE PATIENT'S PLAN OF CARE AND DISPOSITION. BASED ON HISTORY OF PRESENT ILLNESS, AND PHYSICAL EXAM, PATIENT WILL BE DISCHARGED HOME. SHARED DECISION MAKING: PATIENT INSTRUCTED TO FOLLOW UP WITH PRIMARY CARE PROVIDER IN 1-2 DAYS FOR RE-EVALUATION OF SYMPTOMS. PATIENT VERBALIZES UNDERSTANDING TO RETURN TO ED FOR NEW OR WORSENING SYMPTOMS OR IF FOLLOW UP WITH PCP CANNOT BE OBTAINED. PATIENT FEELS COMFORTABLE GOING HOME AT THIS TIME. ALL QUESTIONS ADDRESSED AT TIME OF DISCHARGE. Time of 1ST Reevaluation: 16:30 Reevaluation 1ST: Improved Patient Education/Counseling: Diagnosis, Treatment, Need For Follow Up Family Education/Counseling: Diagnosis, Treatment, No Family Present Medical Screening: No EMC Exist At This Time SEPSIS Sepsis Screen Date sepsis recognized/suspect: Feb 10, 2025 Time Sepsis recognized/suspect: 1441 Recent Procedure: No On Antibiotic Therapy: No Respiratory Rate >20: No Heart Rate >90: Yes Temp<36 C (96.8 F) or >38.3 C: No SBP <90 or MAP <65 mmHG: No New Acute Mental Status Change: No Is the patient on CPAP, BIPAP,: No Vital Signs Date Time Temp Pulse Resp B/P (MAP) Pulse Ox O2 Delivery O2 Flow Rate FiO2 02/10/25 14:40 98.2 111 18 154/108 95 98.2 Departure 1 Departure Time of Disposition: 16:30 Impression: Primary Impression: Acute exacerbation of chronic low back pain Additional Impression: Pain management Disposition: 01 HOME / SELF CARE / HOMELESS Condition: Stable Additional Instructions: FOLLOW-UP WITH PCP IN 1 TO 2 DAYS. RETURN TO ED FOR ANY NEW OR WORSENING SYMPTOMS. Discharged With: Self, Spouse Critical Care Note Critical Care Time?: No Stability Stability form required: No I personally scribed for JOCELINE HERNÁNDEZ ([email or web address]) on 02/10/25 at 15:58. Electronically submitted by Daniele Garcia ([email or web address]). JOCELINE HERNÁNDEZ Feb 10, 2025 15:58
[2025-02-10 16:13] VITALS: TEMP 98.9; O2SAT 97
[2025-02-10] MEDS: ONDANSETRON ODT 4 MG TAB PO ONE (16:13)
[2025-02-10] MEDS: HYDROmorphone HCL 2 MG/ML VL/or syr IM ONE (16:13)
[2025-02-10 16:17] VITALS: BP 146/91; PULSE 87; RESP 17
== END 2025-02-10 16:20 | disposition home or self-care (01) ==
LOC: ER 14:38
DX: G89.29 Other chronic pain (principal); M54.50 Low back pain, unspecified; I10 Essential (primary) hypertension; F17.210 Nicotine dependence, cigarettes, uncomplicated; J44.89 Other specified chronic obstructive pulmonary disease; E78.5 Hyperlipidemia, unspecified; F41.9 Anxiety disorder, unspecified; J45.909 Unspecified asthma, uncomplicated; Z88.0 Allergy status to penicillin; Z88.8 Allergy status to other drugs, medicaments and biological substances
CPT/HCPCS: 96372; 99283; J1171; Q0162